=== PATIENT | female | born 1960 | race American Indian/Alaskan Native ===

== ENCOUNTER 2017-05-15 12:46 | Emergency (ER) | payer OTHER ==
[2017-05-15 12:51] VITALS: BMI 13.7
[2017-05-15] MEDS ORDERED: SODIUM CHLORIDE 500 ML IV STA (13:53)
[2017-05-15] MEDS ORDERED: ALBUTEROL SO4 2.5/IPRATROPIUM 0.5 INH SOL 3 ML VIAL.NEB. NEB ONE ×2 (14:00→14:05)
--- NOTE | 2017-05-15 14:15 | PDOC ---
History of Present Illness - General Chief Complaint: Shortness of Breath Stated Complaint: SOB Time Seen by Provider: 05/15/17 13:17 History Source: Patient Exam Limitations: No Limitations - History of Present Illness Initial Comments: 05/15/17 14:02 Patient is a 56 year old woman here today complaining of shortness of breath for the past several weeks. The patient presented to the ED three days ago with the same complaint. She says that she was given albuterol and sent home after improving. The shortness of breath got worse at home, so she came to the ED. Associated symptoms include chest pain and leg pain. The shortness of breath and chest pain get worse with talking and activity. She describes the chest pain as a band of pressure around her chest. The chest pain has worsened over the past several weeks, with the shortness of breath. Her leg pain is located above the left knee, and has gotten worse in the past several days. Past History - Past Medical History Allergies/Adverse Reactions: Allergies Allergy/AdvReac Type Severity Reaction Status Date / Time Penicillins Allergy Hives Verified 05/15/17 12:47 Home Medications: Ambulatory Orders Alprazolam [Xanax] 2 mg PO DAILY PRN tablet 08/23/13 Trazodone HCl 300 mg PO PRN tablet 08/23/13 Biotin 2,500 mcg PO DAILY 09/04/15 Cholecalciferol (Vitamin D3) [Vitamin D3] 2,000 unit PO DAILY 09/04/15 Fentanyl 0 each TD ASDIR 05/12/17 Lubiprostone [Amitiza] 24 mcg PO DAILY 05/12/17 Prednisone [Deltasone] 20 mg PO BID #14 tablet MDD 2 05/12/17 Albuterol Sulfate Inhaler - [Ventolin HFA Inhaler -] 1 puff IH Q2H PRN #1 inhaler 05/15/17 Anemia: No Asthma: No 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) Cardiac Disorders: No CVA: No COPD: No CHF: No Dementia: No Diabetes: No GI Disorders: Yes (enlarged colon, constipation; gastroesophageal refllux disease) Disorders: No HTN: No Hypercholesterolemia: No Liver Disease: No Seizures: No Thyroid Disease: No - Surgical History Other Surgical History: 05/15/17 14:17 Lymph node dissection, neck Uterine tear repair - Family Disease History Family Disease History: Diabetes: Mother, CA: Father (Prostate) - Psycho/Social/Smoking Cessation Hx Anxiety: No Suicidal Ideation: No Smoking History: Current every day smoker Have you smoked in the past 12 months: Yes Number of Cigarettes Smoked Daily: 10 Information on smoking cessation initiated: Yes 'Breaking Loose' booklet given: 05/15/17 Hx Alcohol Use: No Drug/Substance Use Hx: No Substance Use Type: Alcohol Hx Substance Use Treatment: No Cardiac Specific PMH - Complaint Specific PMHX Pacemaker: No Review of Systems - Review of Systems Is the patient limited Bulgarian proficient: Yes Constitutional: Yes: Loss of Appetite, Unintentional Wgt. Loss HEENTM: Yes: Throat Pain Respiratory: Yes: Cough, Shortness of Breath, SOB with Exertion Cardiac (ROS): Yes: Chest Pain, Chest Tightness. No: Palpitations, Syncope ABD/GI: Yes: Constipated : No: Burning, Dysuria Musculoskeletal: Yes: Joint Pain (left knee pain) Neurological: Yes: Headache Psychiatric: Yes: Anxiety Endocrine: Yes: Unexplained Weight Loss *Physical Exam - Vital Signs Last Vital Signs Temp Pulse Resp BP Pulse Ox 97.5 F L 78 24 120/73 99 05/15/17 21:54 05/15/17 21:54 05/15/17 21:54 05/15/17 21:54 05/15/17 21:54 - Physical Exam General Appearance: Yes: Moderate Distress, Cachetic HEENT: positive: EOMI, PADMA, Muffled/Hoarse voice, Nasal Congestion, Rhinorrhea , Hearing Grossly Normal. negative: Pharyngeal Erythema, Tonsillar Exudate Neck: positive: Tender (tender along right side of neck) Respiratory/Chest: positive: Rapid RR, Wheezing. negative: Stridor Cardiovascular: positive: Regular Rhythm, Regular Rate (not tachy during physician assessment) Vascular Pulses: Dorsalis-Pedis (R): 2+, Doralis-Pedis (L): 2+ Gastrointestinal/Abdominal: positive: Normal Bowel Sounds, Tender (non- peritoneal, right sided) Extremity: positive: Other (Tender to palpation above left knee) Neurologic: positive: print line feeder II-XII NML intact, Alert, Normal Response ED Treatment Course - LABORATORY CBC & Chemistry Diagram: 05/15/17 14:30 05/15/17 14:30 - ADDITIONAL ORDERS Additional order review: Laboratory Results 05/15/17 05/15/17 14:30 14:30 Sodium 141 Potassium 4.0 Chloride 100 Carbon Dioxide 31 Anion Gap 10 BUN 23 H D Creatinine 1.0 Creat Clearance w eGFR 57.56 Random Glucose 119 H D Calcium 8.8 Total Bilirubin 0.2 AST 11 L ALT 11 L Alkaline Phosphatase 110 Troponin I < 0.02 Total Protein 5.9 L Albumin 2.9 L Serum , Qual Negative 05/15/17 14:30 RBC 4.23 MCV 84.3 MCHC 32.7 RDW 13.1 MPV 6.9 L Neutrophils % 88.6 H Lymphocytes % 8.2 D Monocytes % 2.6 L Eosinophils % 0.1 Basophils % 0.5 - RADIOLOGY Radiology Studies Ordered: Category Date Time Status CHEST CTA [CT] Stat CT Scan 05/15/17 13:59 Completed CHEST PA & LAT [RAD] Stat Radiology 05/15/17 13:53 Ordered - Medications Given in the ED: ED Medications Discontinued Medications Generic Name Dose Route Start Last Admin Trade Name Freq PRN Reason Stop Dose Admin Albuterol/Ipratropium 1 amp 05/15/17 14:00 05/15/17 14:36 Duoneb - NEB 05/15/17 14:01 1 amp ONCE ONE Administration Alprazolam 0.5 mg 05/15/17 14:56 05/15/17 15:04 Xanax - PO 05/15/17 14:57 0.5 mg ONCE ONE Administration Sodium Chloride 500 mls @ 500 mls/hr 05/15/17 13:53 05/15/17 14:36 Normal Saline - IV 05/15/17 14:52 500 mls/hr ASDIR STA Administration Medical Decision Making - Medical Decision Making 05/15/17 14:25 Patient is a 56 year old female with history of laryngeal cancer complaining of shortness of breath, leg pain and chest pain, most concerning for pulmonary embolism, acute coronary syndrome, URI, COPD/Asthma and pneumonia. I ordered a CBC, CMP, CXR, Troponin, ECG, CTA-PE. She is being treated with duonebs and 500ml of fluids. 05/15/17 15:17 ECG shows normal sinus rhythm with a rate of 92. No ST elevations seen. AK, QRS and QT intervals normal. No T-wave inversions seen. 05/15/17 21:32 Patient tolerating PO, CTA negative 05/15/17 21:[address] Monet, patient has agreed to go home with albuterol and home xanax. Given discharge instructions and return precautions. *DC/Admit/Observation/Transfer Diagnosis at time of Disposition: Shortness of breath - Discharge Dispostion Condition at time of disposition: Improved Admit: No - Prescriptions Prescriptions: Albuterol Sulfate Inhaler - [Ventolin HFA Inhaler -] 1 puff IH Q2H PRN #1 inhaler PRN Reason: Short Of Breath/Wheezing - Referrals Referrals: Joe Han MD [Staff Physician] - - Patient Instructions Printed Discharge Instructions: DI for Shortness of Breath Additional Instructions: When feeling anxious, take several deep breaths and count to 10. Use your albuterol or xanax as needed. If the shortness of breath continues despite attempts to improve it or worsens, come back to the emergency department. Your CT of your chest found several pulmonary nodules that you should follow as an outpatient. A referral to Dr Han has been included in your discharge instructions. Print Language: CENTRAL AFRICAN - Post Discharge Activity Work/School Note: Back to Work - Attestations Physician Attestion: 05/15/17 15:38 I, Dr. Bruce Anderson, attest that this document has been prepared under my direction and personally reviewed by me in its entirety. I further attest, that it accurately reflects all work, treatment, procedures and medical decision -making performed by me.
--- NOTE | 2017-05-15 14:18 | PDOC ---
Attending Attestation - Resident Resident Name: Bruce Anderson - ED Attending Attestation I have performed the following: I have examined & evaluated the patient, The case was reviewed & discussed with the resident, I agree w/resident's findings & plan, Exceptions are as noted - HPI HPI: 05/15/17 14:15 56 yo F h/o laryngeal cancer s/p chemo and xrt presenting to the ER with a complaint of shortness of breath Pt additionally complains of a band like chest pain (+) exertional dyspnea No fevers or chills - Physicial Exam PE: 05/15/17 14:16 RRR Lung exam limited no wheezing noted Mild abd tenderness - Medical Decision Making 05/15/17 14:18 Will do labs Will do CTA (r/o PE) Will check EKG Will re assess 05/15/17 16:29 Laboratory Tests 05/15/17 05/15/17 14:30 14:30 Sodium 141 Potassium 4.0 Chloride 100 Carbon Dioxide 31 BUN 23 H D Creatinine 1.0 Random Glucose 119 H D Alkaline Phosphatase 110 Troponin I < 0.02 Serum , Qual Negative Pt labs nml CTA pending Pt states she feels a bit better She is requesting to be admitted Pt signed out to Dr Monet Pending CTA Heart Score/ECG Review #1 ECG reviewed & interpreted by me at: 16:29 05/15/17 16:29 Sinus rhythm, rate 92 bpm [place] nml no ST elevations or depressions T waves nml 05/15/17 18:31
[2017-05-15 14:38] LABS: BASOPHIL 0.5 % (0-2.0); EOSINOPHIL 0.1 % (0-4.5); MCH 27.6 pg (25.7-33.7); MCHC 32.7 g/dl (32.0-36.0); MEAN CELL VOLUME 84.3 fl (80-96); MEAN PLT VOLUME 6.9 fl (7.5-11.1); NEUTROPHILS 88.6 % (42.8-82.8); PLATELET COUNT 339 K/MM3 (134-434); RDW 13.1 % (11.6-15.6); WHITE BLOOD COUNT 11.6 K/mm3 (4.0-10.0)
[2017-05-15] MEDS ORDERED: ALPRAZolam 0.25 MG TABLET PO ONE (14:56)
[2017-05-15] MEDS ORDERED: ALPRAZolam 0.25 MG TABLET ONE (15:01)
[2017-05-15 15:05] LABS: ALBUMIN 2.9 g/dl (3.4-5.0); ALK PHOS 110 U/L (45-117); ANION GAP 10 (8-16); BILIRUBIN,TOTAL 0.2 mg/dL (0.2-1.0); CALCIUM 8.8 mg/dL (8.5-10.1); CO2 31 mmol/L (21-32); GLUCOSE,RANDOM 119 mg/dL (74-106); SGOT/AST 11 U/L (15-37); SGPT/ALT 11 U/L (12-78); TOT PROT 5.9 g/dl (6.4-8.2)
[2017-05-15 15:07] LABS: TROPONIN I < 0.02 ng/ml (0.00-0.05)
[2017-05-15 21:55] VITALS: BP 120/73; PULSE 78; TEMP 97.5
--- NOTE | 2017-05-15 22:13 | PDOC ---
*Physical Exam - Vital Signs Last Vital Signs Temp Pulse Resp BP Pulse Ox 97.5 F L 78 24 120/73 99 05/15/17 21:54 05/15/17 21:54 05/15/17 21:54 05/15/17 21:54 05/15/17 21:54 ED Treatment Course - LABORATORY CBC & Chemistry Diagram: 05/15/17 14:30 05/15/17 14:30 - ADDITIONAL ORDERS Additional order review: Laboratory Results 05/15/17 05/15/17 14:30 14:30 Sodium 141 Potassium 4.0 Chloride 100 Carbon Dioxide 31 Anion Gap 10 BUN 23 H D Creatinine 1.0 Creat Clearance w eGFR 57.56 Random Glucose 119 H D Calcium 8.8 Total Bilirubin 0.2 AST 11 L ALT 11 L Alkaline Phosphatase 110 Troponin I < 0.02 Total Protein 5.9 L Albumin 2.9 L Serum , Qual Negative 05/15/17 14:30 RBC 4.23 MCV 84.3 MCHC 32.7 RDW 13.1 MPV 6.9 L Neutrophils % 88.6 H Lymphocytes % 8.2 D Monocytes % 2.6 L Eosinophils % 0.1 Basophils % 0.5 - Medications Given in the ED: ED Medications Discontinued Medications Generic Name Dose Route Start Last Admin Trade Name Freq PRN Reason Stop Dose Admin Albuterol/Ipratropium 1 amp 05/15/17 14:00 05/15/17 14:36 Duoneb - NEB 05/15/17 14:01 1 amp ONCE ONE Administration Alprazolam 0.5 mg 05/15/17 14:56 05/15/17 15:04 Xanax - PO 05/15/17 14:57 0.5 mg ONCE ONE Administration Sodium Chloride 500 mls @ 500 mls/hr 05/15/17 13:53 05/15/17 14:36 Normal Saline - IV 05/15/17 14:52 500 mls/hr ASDIR STA Administration Medical Decision Making - Medical Decision Making 05/15/17 22:10 Pt signed out to me from Dr. Santiago. The pt presented with sob, she had a workup here including labs, US, cta that were essentially neg for acute pathology. I suspect the pts sypmtoms are secondary to the limited movement of the pts vocal cords as the pt states when she is anious/breathing quickly she feels like she is suffocating. I will have the pt slow down her breathing when she is breathing quickly and she should feel better. I also enocuraged her to use her AC and take her xanax when needed. The pt has a follow up with ENT on monday for a biopsy. return precautions were discussed I discussed the physical exam findings, ancillary test results and final diagnoses with the patient. I answered all of the patient's questions. The patient was satisfied with the care received and felt comfortable with the discharge plan and treatment plan. The patient will call their primary care physician within 24 hours to arrange follow-up and will return to the Emergency Department with any new, persistent or worsening symptoms. *DC/Admit/Observation/Transfer Diagnosis at time of Disposition: Shortness of breath - Discharge Dispostion Condition at time of disposition: Improved - Prescriptions Prescriptions: Albuterol Sulfate Inhaler - [Ventolin HFA Inhaler -] 1 puff IH Q2H PRN #1 inhaler PRN Reason: Short Of Breath/Wheezing - Referrals Referrals: Joe Han MD [Staff Physician] - - Patient Instructions Printed Discharge Instructions: DI for Shortness of Breath Additional Instructions: When feeling anxious, take several deep breaths and count to 10. Use your albuterol or xanax as needed. If the shortness of breath continues despite attempts to improve it or worsens, come back to the emergency department. Your CT of your chest found several pulmonary nodules that you should follow as an outpatient. A referral to Dr Han has been included in your discharge instructions. Print Language: GEORGIAN - Post Discharge Activity Work/School Note: Back to Work
--- NOTE | 2017-05-16 14:43 | EKG ---
Test Reason : Blood Pressure : / mmHG Vent. 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
== END 2017-05-15 22:34 | disposition home or self-care (01) ==
LOC: JER 12:46
PROC: 3E0F7GC Introduction of Other Therapeutic Substance into Respiratory Tract, Via Natural or Artificial Opening (ICD-10-PCS; principal; 2017-05-15)
PROC: 3E0337Z Introduction of Electrolytic and Water Balance Substance into Peripheral Vein, Percutaneous Approach (ICD-10-PCS; 2017-05-15)
DX: R06.02 Shortness of breath (principal); Z85.21 Personal history of malignant neoplasm of larynx
CPT/HCPCS: 36415; 71275-TC; 80053; 84484; 84703; 85025; 93005; 93010; 99283-25

== ENCOUNTER 2017-08-20 13:45 | Emergency (ER) | payer OTHER ==
[2017-08-20 13:55] VITALS: BMI 14.6
--- NOTE | 2017-08-20 14:05 | PDOC ---
History of Present Illness <Lucho Santo - Last Filed: 08/20/17 14:04> - History of Present Illness Initial Comments: 08/20/17 14:38 The patient is a 56 year old female, accompanied by , with a past medical history of anxiety, enlarged colon, chronic constipation, stage 4 throat cancer (s/p radiation and chemotherapy), and current cigarette smoking ( 10 cigarettes daily), who presents to the emergency department with increased swelling to her left clavicle s/p surgical reconstruction of her throat involving tissue from thigh and left breast about 3 weeks ago. She also reports her feeding tube site looks infected for about 6 days. The patient reports her surgery 3 weeks ago was a second time surgery performed at [facility] with Dr. Smallwood, ENT surgeon. She states she was placed in a hyperbaric chamber until about a week ago, to which she attributes an onset of right ear pain after being removed from the hyperbaric chamber. The patient reports her feeding tube is functional, however, states the surrounding site looks irritated. She states she bolus feeds herself about 3 times a day. She denies chest pain, shortness of breath, headache and dizziness. She denies fever, chills, nausea, vomit, diarrhea and constipation. She denies dysuria, frequency, urgency and hematuria. Allergies: Penicillins PCP - Dr. Akers ([phone]) ENT - Dr. 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) Cardiac Disorders: No CVA: No COPD: No CHF: No Dementia: No Diabetes: No GI Disorders: Yes (enlarged colon, constipation; gastroesophageal refllux disease) Disorders: No HTN: No Hypercholesterolemia: No Liver Disease: No Seizures: No Thyroid Disease: No - Family Disease History Family Disease History: Diabetes: Mother, CA: Father (Prostate) - Suicide/Smoking/Psychosocial Hx Smoking History: Unknown if ever smoked Have you smoked in the past 12 months: Yes Number of Cigarettes Smoked Daily: 10 'Breaking Loose' booklet given: 05/15/17 Hx Alcohol Use: No Drug/Substance Use Hx: No Substance Use Type: None Hx Substance Use Treatment: No <Lucho Santo - Last Filed: 08/20/17 14:04> <Milagro Tucker - Last Filed: 08/20/17 19:52> <Alexa Steele - Last Filed: 08/20/17 20:25> - Past Medical History Allergies/Adverse Reactions: Allergies Allergy/AdvReac Type Severity Reaction Status Date / Time Penicillins Allergy Hives Verified 08/20/17 16:06 Home Medications: Ambulatory Orders Alprazolam [Xanax] 2 mg PO DAILY PRN 08/20/17 Carisoprodol [Soma] 350 mg PO DAILY 08/20/17 Diazepam [Valium] 5 mg PO TID 08/20/17 Gabapentin [Neurontin] 200 mg PO DAILY 08/20/17 Hydromorphone [Dilaudid -] 2 mg PO DAILY PRN 08/20/17 Levothyroxine Sodium [Levo-T] 150 mcg PO DAILY 08/20/17 Lorazepam [Ativan] 2 mg PO BID 08/20/17 Lubiprostone [Amitiza] 24 mcg PO DAILY 08/20/17 Oxycodone HCl/Acetaminophen [Percocet 5-325 mg Tablet] 1 - 2 tab PO Q4H PRN 06/29 Prednisone [Deltasone] 20 mg PO BID 08/20/17 Trazodone HCl 300 mg PO DAILY 08/20/17 Review of Systems - Review of Systems Able to Perform ROS?: Yes Comments:: 08/20/17 14:38 GENERAL/CONSTITUTIONAL: No fever or chills. No weakness. HEAD, EYES, EARS, NOSE AND THROAT: No change in vision. No ear pain or discharge. No sore throat. CARDIOVASCULAR: No chest pain or shortness of breath. RESPIRATORY: No cough, wheezing, or hemoptysis. GASTROINTESTINAL: No nausea, vomiting, diarrhea or constipation. GENITOURINARY: No dysuria, frequency, or change in urination. MUSCULOSKELETAL: No joint or muscle swelling or pain. No neck or back pain. SKIN: (+) swelling to left clavicular region. "skin irritation" to feeding tube site. NEUROLOGIC: No headache, vertigo, loss of consciousness, or change in strength/ sensation. ENDOCRINE: No increased thirst. No abnormal weight change. HEMATOLOGIC/LYMPHATIC: No anemia, easy bleeding, or history of blood clots. ALLERGIC/IMMUNOLOGIC: No hives or skin allergy. <Milagro Tucker - Last Filed: 08/20/17 19:52> *Physical Exam - Vital Signs Last Vital Signs Temp Pulse Resp BP Pulse Ox 98 F 102 H 19 109/66 99 08/20/17 13:52 08/20/17 13:52 08/20/17 13:52 08/20/17 13:52 08/20/17 13:52 <Lucho Santo - Last Filed: 08/20/17 14:04> - Vital Signs Last Vital Signs Temp Pulse Resp BP Pulse Ox 98 F 102 H 19 109/66 99 08/20/17 13:52 08/20/17 13:52 08/20/17 13:52 08/20/17 13:52 08/20/17 13:52 - Physical Exam Comments: 08/20/17 14:39 GENERAL: Awake, alert, and fully oriented, frail appearing, in no acute distress HEAD: No signs of trauma EYES: PERRLA, EOMI, sclera anicteric, conjunctiva clear ENT: (+) Stoma does not appear infected, tubes in bilateral ears with wax and debris in right eat. hearing grossly normal, nares patent, oropharynx clear without exudates. Moist mucosa NECK: (+) swelling to left clavicle. Normal ROM, supple, no lymphadenopathy, JVD , or palpable masses LUNGS: Breath sounds equal, clear to auscultation bilaterally. No wheezes, and no crackles HEART: Regular rate and rhythm, normal S1 and S2, no murmurs, rubs or gallops ABDOMEN: (+) feeding tube intact to LLQ without surrounding erythema or increased warmth. Soft, nontender, normoactive bowel sounds. No guarding, no rebound. No masses EXTREMITIES: Normal range of motion, no edema. No clubbing or cyanosis. No cords, erythema, or tenderness NEUROLOGICAL: Cranial nerves II through XII grossly intact. Normal speech, normal gait SKIN: Warm, Dry, normal turgor, no rashes or lesions noted. <Milagro Tucker - Last Filed: 08/20/17 19:52> - Vital Signs Last Vital Signs Temp Pulse Resp BP Pulse Ox 98.1 F 85 18 119/81 100 08/20/17 16:53 08/20/17 16:53 08/20/17 16:53 08/20/17 16:53 08/20/17 16:53 <Alexa Steele - Last Filed: 08/20/17 20:25> ED Treatment Course - LABORATORY CBC & Chemistry Diagram: 08/20/17 15:00 08/20/17 15:00 - RADIOLOGY Radiograph Interpretation: EXAM#: TYPE/EXAM: RESULT: [id number] RAD/ABDOMEN-KUB FLAT PLATE Abdomen: Check G-tube study Contrast was injected into a G-tube. This filled stomach and proximal duodenum. There is no sign of obstruction or leak. The limited imaging is available for review. Reported By: Vahid Gloria MD 08/20/17 1540 _ EXAM: CT CHEST WITH CONTRAST. REASON FOR EXAM: Laryngeal cancer COMPARISON: None FINDINGS Centrilobular pulmonary emphysematous changes occupying the upper lung reis. There is no pulmonary nodule, mass, effusion, pneumothorax. Cardiac structure and pulmonary vascularity are within normal. There is no pathologic mediastinal or axillary adenopathy. There is no aortic aneurysm, dissection or pulmonary embolus. There is no pericardial effusion observed. Bony thoracic cage is unremarkable. IMPRESSION: No active chest findings. No pulmonary mass or pathologic adenopathy Pulmonary emphysema Tawana Maynard D.O. 08/20/2017 18:49 EST _ EXAM: CT NECK with IV contrast HISTORY: Laryngeal carcinoma. Multiple surgeries. COMPARISON: None. FINDINGS: There is evidence of prior anterior neck resection with fat transposition. Tracheostomy in place. Trachea is obstructed above the tracheostomy and filled with secretion. Multiple surgical clips in the bilateral neck. No pathologically enlarged lymph node identified. Soft tissue tumor extension or inflammation is not excluded in the upper neck. Jugular veins are normally opacified. No lytic or sclerotic bony lesion seen in the cervical spine. Lung emphysema with lung apical fibrosis. Patricia Banuelos MD 08/20/2017 19:45 EST <Milagro Tucker - Last Filed: 08/20/17 19:52> - LABORATORY CBC & Chemistry Diagram: 08/20/17 15:00 08/20/17 15:00 - ADDITIONAL ORDERS Additional order review: Laboratory Results 08/20/17 08/20/17 08/20/17 15:35 15:00 15:00 PT with INR INR Sodium 139 Potassium 4.4 Chloride 100 Carbon Dioxide 29 Anion Gap 10 BUN 59 H D Creatinine 1.1 H Creat Clearance w eGFR 51.57 Random Glucose 105 Lactic Acid 0.8 Calcium 9.1 Total Bilirubin 0.3 D AST 19 D ALT 19 D Alkaline Phosphatase 147 H D Total Protein 7.0 Albumin 3.2 L Urine Color Yellow Urine Appearance Slcloudy Urine pH 6.0 Ur Specific [place] 1.010 Urine Protein Negative Urine Glucose (UA) Negative Urine Ketones Negative Urine Blood Negative Urine Nitrite Negative Urine Bilirubin Negative Urine Urobilinogen Negative Ur Leukocyte Esterase Negative Acetone, Qual Negative L 08/20/17 15:00 PT with INR 10.70 INR 0.97 Sodium Potassium Chloride Carbon Dioxide Anion Gap BUN Creatinine Creat Clearance w eGFR Random Glucose Lactic Acid Calcium Total Bilirubin AST ALT Alkaline Phosphatase Total Protein Albumin Urine Color Urine Appearance Urine pH Ur Specific [place] Urine Protein Urine Glucose (UA) Urine Ketones Urine Blood Urine Nitrite Urine Bilirubin Urine Urobilinogen Ur Leukocyte Esterase Acetone, Qual 08/20/17 15:00 RBC 3.33 L D MCV 88.8 MCHC 32.9 RDW 20.2 H D MPV 7.7 D Neutrophils % 73.3 Lymphocytes % 14.2 D Monocytes % 9.0 D Eosinophils % 2.8 D Basophils % 0.7 - Medications Given in the ED: ED Medications Discontinued Medications Generic Name Dose Route Start Last Admin Trade Name Maykel PRN Reason Stop Dose Admin Sodium Chloride 1,000 mls @ 1,000 mls/hr 08/20/17 14:37 08/20/17 15:41 Normal Saline - IV 08/20/17 15:36 1,000 mls/hr ASDIR STA Administration <Alexa Steele - Last Filed: 08/20/17 20:25> Medical Decision Making - Medical Decision Making 08/20/17 19:38 Patient Name: KENNETH ANAND THIS IS A PRELIMINARY REPORT FROM [facility] DATE OF SERVICE: 2017-08-20 17:24:38 IMAGES: [id number] EXAM: CT CHEST WITH CONTRAST. REASON FOR EXAM: Laryngeal cancer COMPARISON: None FINDINGS Centrilobular pulmonary emphysematous changes occupying the upper lung reis. There is no pulmonary nodule, mass, effusion, pneumothorax. Cardiac structure and pulmonary vascularity are within normal. There is no pathologic mediastinal or axillary adenopathy. There is no aortic aneurysm, dissection or pulmonary embolus. There is no pericardial effusion observed. Bony thoracic cage is unremarkable. IMPRESSION No active chest findings. No pulmonary mass or pathologic adenopathy Pulmonary emphysema THIS DOCUMENT HAS BEEN ELECTRONICALLY SIGNED 08/20/17 20:03 Patient Name: KENNETH ANAND THIS IS A PRELIMINARY REPORT FROM [facility] DATE OF SERVICE: 2017-08-20 17:31:27 IMAGES: [id number] EXAM: CT NECK with IV contrast HISTORY: Laryngeal carcinoma. Multiple surgeries. COMPARISON: None. FINDINGS: There is evidence of prior anterior neck resection with fat transposition. Tracheostomy in place. Trachea is obstructed above the tracheostomy and filled with secretion. Multiple surgical clips in the bilateral neck. No pathologically enlarged lymph node identified. Soft tissue tumor extension or inflammation is not excluded in the upper neck. Jugular veins are normally opacified. No lytic or sclerotic bony lesion seen in the cervical spine. Lung emphysema with lung apical fibrosis. THIS DOCUMENT HAS BEEN ELECTRONICALLY SIGNED 08/20/17 20:10 I spoke to pt's ENT service and ronald will get in touch with her ENT Rosamny to figure out follow up treatment after today. <Alexa Steele - Last Filed: 08/20/17 20:25> *DC/Admit/Observation/Transfer - Attestations Physician Attestion: 08/20/17 14:05 I, Dr. Lucho Santo, attest that this document has been prepared under my direction and personally reviewed by me in its entirety. I further attest, that it accurately reflects all work, treatment, procedures and medical decision -making performed by me. <Lucho Santo - Last Filed: 08/20/17 14:04> - Attestations Scribe Attestion: 08/20/17 14:43 Documentation prepared by Milagro Tucker, acting as medical reception for Lucho Santo DO <Milagro Tucker - Last Filed: 08/20/17 19:52> <Alexa Steele - Last Filed: 08/20/17 20:25> Diagnosis at time of Disposition: Dehydration, Neck swelling, Skin irritation - Discharge Dispostion Disposition: HOME Condition at time of disposition: Stable - Referrals Referrals: Bruce Akers MD [Primary Care Provider] - - Patient Instructions Printed Discharge Instructions: DI for Postoperative Pain
[2017-08-20] MEDS ORDERED: SODIUM CHLORIDE 1,000 ML IV STA ×2 (14:37→18:44)
[2017-08-20 15:12] LABS: BASOPHIL 0.7 % (0-2.0); EOSINOPHIL 2.8 % (0-4.5); MCH 29.2 pg (25.7-33.7); MCHC 32.9 g/dl (32.0-36.0); MEAN CELL VOLUME 88.8 fl (80-96); MEAN PLT VOLUME 7.7 fl (7.5-11.1); NEUTROPHILS 73.3 % (42.8-82.8); PLATELET COUNT 354 K/MM3 (134-434); RDW 20.2 % (11.6-15.6); WHITE BLOOD COUNT 8.1 K/mm3 (4.0-10.0)
[2017-08-20 15:27] LABS: INR 0.97 (0.82-1.09); PROTHROMBIN TIME (PATIENT) 10.7 SEC (9.98-11.88)
[2017-08-20 15:32] LABS: ACETONE SERUM NEGATIVE (NEGATIVE)
[2017-08-20 15:38] LABS: ALBUMIN 3.2 g/dl (3.4-5.0); ANION GAP 10 (8-16); BILIRUBIN,TOTAL 0.3 mg/dL (0.2-1.0); CALCIUM 9.1 mg/dL (8.5-10.1); CO2 29 mmol/L (21-32); CREATININE 1.1 mg/dL (0.55-1.02); GLUCOSE,RANDOM 105 mg/dL (74-106); SGOT/AST 19 U/L (15-37); SGPT/ALT 19 U/L (12-78)
[2017-08-20 15:39] LABS: ALK PHOS 147 U/L (45-117)
[2017-08-20 16:01] LABS: URINE APPEARANCE SLCLOUDY; URINE BILIRUBIN NEGATIVE (NEGATIVE); URINE BLOOD NEGATIVE (NEGATIVE); URINE COLOR YELLOW; URINE GLUCOSE (UA) NEGATIVE (NEGATIVE); URINE KETONE NEGATIVE (NEGATIVE); URINE NITRITE NEGATIVE (NEGATIVE); URINE PROTEIN NEGATIVE (NEGATIVE); URINE UROBILINOGEN NEGATIVE mg/dL (0.2-1.0)
[2017-08-20 19:00] LABS: URINE LEUK ESTERASE Negative (NEGATIVE)
[2017-08-20 20:32] VITALS: BP 127/86; PULSE 89; TEMP 98.5
== END 2017-08-20 20:32 | disposition home or self-care (01) ==
LOC: JER 13:45
PROC: 3E0337Z Introduction of Electrolytic and Water Balance Substance into Peripheral Vein, Percutaneous Approach (ICD-10-PCS; principal; 2017-08-20)
DX: E86.0 Dehydration (principal); R22.1 Localized swelling, mass and lump, neck; L98.9 Disorder of the skin and subcutaneous tissue, unspecified; F41.9 Anxiety disorder, unspecified; K59.00 Constipation, unspecified; C14.0 Malignant neoplasm of pharynx, unspecified; Z92.21 Personal history of antineoplastic chemotherapy; Z92.3 Personal history of irradiation; F17.210 Nicotine dependence, cigarettes, uncomplicated; Z88.0 Allergy status to penicillin; K21.9 Gastro-esophageal reflux disease without esophagitis; K59.39 Other megacolon; Z93.3 Colostomy status
CPT/HCPCS: 36415; 70491-TC; 71260-TC; 74000-TC; 80053; 81003; 82009; 83605; 85025; 85610; 87040; 87086; 99283-25

== ENCOUNTER 2018-01-25 09:49 | Observation (INO) | payer OTHER ==
--- NOTE | 2018-01-25 11:01 | PDOC ---
History of Present Illness - General Chief Complaint: Psychiatric Stated Complaint: ANXIETY, (POSSIBLE OVERDOSE) Time Seen by Provider: 01/25/18 10:06 History Source: Patient Exam Limitations: No Limitations - History of Present Illness Initial Comments: 01/25/18 17:34 The patient is a 57 year old female with history of laryngeal CA, anxiety/ depression, who presents to the ED today after overdosing on several of her medications. She states she has been dealing with feelings of anxiety and restlessness for several months. She states she has been taking above her recommended dosage of her Xanax, Lorazepam, and Oxycodone for some time because "nothing is helping". Today, she took approximately 4 Lorazepam, >10 Xanax, and >8 Oxycodone this morning prior to ED arrival. On evaluation, she does report persistant feelings of anxiety. She denies any other acute physical complaints. No headache, abdominal pain, nausea, or vomiting today. pt denies any cp, sob, palpitations, abd pain ,n/v. Pt denie sany SI/HI - states she took the meds strictly as she felt anxious and wanted the meds to make her less anxious no history of SI or attempts. 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) Cardiac Disorders: No CVA: No COPD: No CHF: No Dementia: No Diabetes: No GI Disorders: Yes (enlarged colon, constipation; gastroesophageal refllux disease) Disorders: No HTN: No Hypercholesterolemia: No Liver Disease: No Seizures: No Thyroid Disease: No - Family Disease History Family Disease History: Diabetes: Mother, CA: Father (Prostate) - Suicide/Smoking/Psychosocial Hx Smoking History: Unknown if ever smoked Have you smoked in the past 12 months: Yes Number of Cigarettes Smoked Daily: 3 Information on smoking cessation initiated: Yes 'Breaking Loose' booklet given: 01/25/18 Hx Alcohol Use: No Drug/Substance Use Hx: No Substance Use Type: None Hx Substance Use Treatment: No Review of Systems - Review of Systems Able to Perform ROS?: Yes Comments:: 01/25/18 17:34 Constitutional - no reported Fever, Chills, HEENT: no reported vision changes, sore throat Respiratory: no reported cough, sob, hemoptysis Cardiac: no reported chest pain, palpitations, light headedness, leg swelling Abd/GI: no reported abd pain, nausea, vomiting, blood per rectum, melena, diarrhea : no reported dysuria, frequency, discharge Musculskelatal - no reported back pain, joint swelling skin - no reported bruising, erythema, rash neurological: no reported headache, numbness, focal weakness, tingling, ataxia, hematologic: no reported anemia, easy bruising, easy bleeding psych:+anxiety *Physical Exam - Vital Signs Last Vital Signs Temp Pulse Resp BP Pulse Ox 97.9 F 61 18 131/71 100 01/25/18 09:52 01/25/18 09:52 01/25/18 09:52 01/25/18 09:52 01/25/18 09:52 - Physical Exam Comments: 01/25/18 17:35 GENERAL: The patient is awake, alert, and fully oriented, Thin, anxious appearing, tearful. tremulous, cacetchic appearing HEAD: Normocephalic, atraumatic. EYES: extraocular movements intact, sclera anicteric, conjunctiva clear. ENT: Unable to vocalize secondary to laryngeal surgeries, dry mucous membranes. trach in place NECK: Normal range of motion, supple LUNGS: Breath sounds equal, clear to auscultation bilaterally. No wheezes, no rhonchi, no rales. HEART: Regular rate and rhythm, without murmur, rub or gallop. ABDOMEN: Soft, nontender, normoactive bowel sounds. No guarding, no rebound.No CVA tenderness EXTREMITIES: Normal range of motion, no edema. No clubbing or cyanosis. No cords, erythema, or tenderness. NEUROLOGICAL: No facial assymetry, Normal speech, PSYCH: Normal mood, normal affect. SKIN: Warm, Dry, normal turgor, Well healing surgical scars noted on chest and left lower extermity ED Treatment Course - LABORATORY CBC & Chemistry Diagram: 01/25/18 11:57 01/25/18 11:57 Medical Decision Making - Medical Decision Making 01/25/18 11:00 57y F hxo f pmhx lanryngeal ca, GERD, deperssion, anxiety, presents for being uanble to sleep and being very anxious due to her impending surgery. She has been taking her medications in exceess (xanax 0.25mg, ativan 1mg, oxycodone 5mg , soma) without help. on exam pt is tremulous, appears anxious and tearful pt denies any SI/HI has not taken any other medications will ck labs, ekg, will r/o conigestants will dw tox center A portion of this note was documented by scribe services under my direction. I have reviewed the details of the note, within reason, and agree with the documentation with the following case summary and management plan written by me 01/25/18 12:55 pill count: Loraxepam 1mg, disp 60 tabs, filled 01/04/18 took 48 tabs over 20 days Alprozolam .25mg, disp 180 tabs, filled 01/11/18, took 160 tabs in 14 days Oxycodone 5mg --> took 96 tabs over 21 days soma 350mg, took 56.5 tabs in 14 days (dosed BID) 01/25/18 12:59 Discussed with Veronique at [facility] Poison control notified 01/25/18 14:54 case jaswant walters from [facility] poison - recommend observation, librium/symptomatic treatment 01/25/18 15:07 case jaswant plascencia [facility] Case discussed in detail with admitting physician including history, physical exam and ancillary studies. Admitting physician has assumed care for the patient, will follow all pending diagnostics and will complete the evaluation and treatment. *DC/Admit/Observation/Transfer Diagnosis at time of Disposition: Benzodiazepine abuse Benzodiazepine withdrawal Qualifiers: Complication of substance-induced condition: uncomplicated Qualified Code(s): F13.230 - Sedative, hypnotic or anxiolytic dependence with withdrawal, uncomplicated - Discharge Dispostion Condition at time of disposition: Guarded Admit: Yes - Referrals Referrals: Bruce Akers MD [Primary Care Provider] - - Patient Instructions - Post Discharge Activity
[2018-01-25 12:04] LABS: BASO % 0.5 % (0-2.0); EOS % 3.3 % (0-4.5); HEMATOCRIT 35.9 % (32.4-45.2); HEMOGLOBIN 12.1 GM/dL (10.7-15.3); LYMPH % 19.3 % (8-40); MCH 30.5 pg (25.7-33.7); MCHC 33.8 g/dl (32.0-36.0); MEAN CELL VOLUME 90.3 fl (80-96); MONO % 8.1 % (3.8-10.2); NEUT % 68.8 % (42.8-82.8); PLATELET COUNT 246 K/MM3 (134-434); RBC 3.98 M/mm3 (3.60-5.2); RDW 16.5 % (11.6-15.6); WHITE BLOOD COUNT 7.5 K/mm3 (4.0-10.0)
--- NOTE | 2018-01-25 12:33 | EKG ---
Test Reason : Blood Pressure : / mmHG Vent. 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
[2018-01-25 12:36] LABS: ALBUMIN 4.1 g/dl (3.4-5.0); ANION GAP 7 (8-16); BILIRUBIN,TOTAL 0.3 mg/dL (0.2-1.0); BLOOD UREA NITROGEN 49 mg/dL (7-18); CALCIUM 8.7 mg/dL (8.5-10.1); CHLORIDE 97 mmol/L (98-107); CO2 33 mmol/L (21-32); CREATININE 1.3 mg/dL (0.55-1.02); GLUCOSE,RANDOM 71 mg/dL (74-106); POTASSIUM 4.3 mmol/L (3.5-5.1); SGOT/AST 29 U/L (15-37); SGPT/ALT 37 U/L (12-78); SODIUM 137 mmol/L (136-145); TOT PROT 7.8 g/dl (6.4-8.2)
[2018-01-25 12:37] LABS: ACETAMINOPHEN 7.917 ug/mL; ALK PHOS 139 U/L (45-117)
[2018-01-25] MEDS ORDERED: SODIUM CHLORIDE 1,000 ML IV ONE (13:08)
[2018-01-25] MEDS ORDERED: chlordiazePOXIDE HCL 25 MG CAPSULE PO ONE (14:54)
--- NOTE | 2018-01-25 15:08 | CONSULT ---
"Consult Detox [facility] Reason for Current Admission/Consult: withdrawal from prescribed medications Referred by:: dr. Monet - History History of Present Illness: Yancy Rodriguez, 1960 Search Date: 01/26/2018 10:30:06 AM The Drug Utilization Report below displays all of the controlled substance prescriptions, if any, that your patient has filled in the last twelve months. The information displayed on this report is compiled from pharmacy submissions to the Department, and accurately reflects the information as submitted by the pharmacies. This report was requested by: Kelvin Aguirre | Reference #: [id number] Others' Prescriptions Patient Name: Klarissa Rodriguez Date: 1960 Address: [address] [place] [address] Sex: Female Rx Written Rx Dispensed Drug Quantity Days Supply Prescriber Name 01/11/2018 01/12/2018 fentanyl 50 mcg/hr patch 10 30 Oswald, Bruce Ruelas MD 01/11/2018 01/12/2018 alprazolam 0.25 mg tablet 180 30 Oswald, Bruce Ruelas MD 01/11/2018 01/12/2018 carisoprodol 350 mg tablet 60 30 Oswald, Bruce Ruelas MD 01/04/2018 01/05/2018 oxycodone hcl 5 mg tablet 120 30 Oswald, Bruce Ruelas MD 01/04/2018 01/05/2018 lorazepam 1 mg tablet 60 30 Oswald, Bruce Ruelas MD 12/14/2017 12/16/2017 fentanyl 50 mcg/hr patch 10 30 Oswald, Bruce Ruelas MD 12/14/2017 12/16/2017 carisoprodol 350 mg tablet 30 30 OswaldBruce MD 12/14/2017 12/16/2017 alprazolam 0.25 mg tablet 180 30 Oswald, Bruce Ruelas MD 12/08/2017 12/09/2017 lorazepam 1 mg tablet 60 30 Oswald, Bruce Ruelas MD 12/05/2017 12/05/2017 oxycodone hcl 5 mg tablet 120 30 Oswald, Bruce Ruelas MD 12/01/2017 12/02/2017 hydromorphone 2 mg tablet 60 20 Oswald, Bruce Ruelas MD 11/14/2017 11/15/2017 fentanyl 50 mcg/hr patch 10 30 OswaldBruce MD 11/14/2017 11/15/2017 carisoprodol 350 mg tablet 30 30 OswaldBruce MD 11/14/2017 11/15/2017 alprazolam 0.25 mg tablet 180 30 OswaldBruce MD 11/03/2017 11/10/2017 hydromorphone 2 mg tablet 60 20 OswaldBruce MD 10/11/2017 11/09/2017 lorazepam 1 mg tablet 60 30 OswaldBruce MD 11/02/2017 11/03/2017 hydromorphone 2 mg tablet 30 10 OswaldBruce MD 10/30/2017 11/02/2017 fentanyl 25 mcg/hr patch 5 30 OswaldBruce MD 10/16/2017 10/18/2017 fentanyl 12 mcg/hr patch 5 15 OswaldBruce MD 10/16/2017 10/18/2017 alprazolam 0.25 mg tablet 180 30 OswaldBruce MD 10/16/2017 10/18/2017 carisoprodol 350 mg tablet 30 30 OswaldBruce MD 09/11/2017 10/11/2017 lorazepam 1 mg tablet 60 30 OswaldBruce MD 10/02/2017 10/04/2017 hydromorphone 2 mg tablet 90 30 OswaldBruce MD 09/18/2017 09/18/2017 hydromorphone 2 mg tablet 60 30 RoschMichael MD 09/18/2017 09/18/2017 alprazolam 0.25 mg tablet 180 30 RoschMichael MD 09/18/2017 09/18/2017 carisoprodol 350 mg tablet 30 30 RoschMichael MD 08/18/2017 09/11/2017 lorazepam 1 mg tablet 60 30 OswaldBruce MD 08/18/2017 08/18/2017 hydromorphone 2 mg tablet 60 30 OswaldBruce MD 08/18/2017 08/18/2017 alprazolam 0.25 mg tablet 180 30 OswaldBruce MD 08/18/2017 08/18/2017 carisoprodol 350 mg tablet 30 30 OswaldBruce MD 08/04/2017 08/08/2017 lorazepam 1 mg tablet 32 16 Bruce Akers MD 08/04/2017 08/05/2017 hydromorphone 2 mg tablet 32 16 Bruce Akers MD 08/04/2017 08/05/2017 diazepam 5 mg tablet 50 16 Bruce Akers MD 08/04/2017 08/05/2017 carisoprodol 350 mg tablet 48 16 OswaldBruce rice MD 05/19/2017 05/23/2017 alprazolam 0.25 mg tablet 180 30 OswaldBruce escalera MD 05/19/2017 05/23/2017 tramadol-acetaminophen 37.5-325 mg tab 120 30 OswaldBruce escalera MD 04/14/2017 04/18/2017 alprazolam 0.25 mg tablet 180 30 OswaldBruce escalera MD 04/17/2017 04/18/2017 tramadol-acetaminophen 37.5-325 mg tab 120 30 OswaldBruce escalera MD 03/06/2017 03/15/2017 alprazolam 0.25 mg tablet 180 30 OswaldBruce escalera MD 03/06/2017 03/06/2017 tramadol-acetaminophen 37.5-325 mg tab 120 30 Darby Orlando [employer] WORKER 02/17/2017 02/18/2017 tramadol-acetaminophen 37.5-325 mg tab 30 10 Darby Orlando DERRICK WORKER 01/19/2017 01/30/2017 tramadol hcl 50 mg tablet 60 30 OswaldBruce escalera MD 01/19/2017 01/30/2017 alprazolam 0.25 mg tablet 180 30 OswaldBruce escalera MD 57 yo f admitted with dehydration, PMHX ca larynx, s/p laryngectomy and did not bring her device for speaking so history is obtained between reading lips and her writing. she has chronic pain and anxiety and has been overusing her medications. now anxiety ++++ , was given librium 100mg x1 dose in ed yesterday , oxycodone 5mg x1 dose today and wears fentanyl patch. Patient denies alcohol or other illicit drug use, seizures or DTS in past, smokes nicotine vapes? requesting gum - History Source History Provided By: Patient, Medical Record, Caregiver Limitations to Obtaining History: Physical Impairment - Alcohol/Substance Use Hx Alcohol Use: No Hx Substance Use: Yes (overuse of pain and anxiety medi ations, ran out) Hx Substance Use Treatment: No - Current Drug/Alcohol Use Alprazolam (Xanax) Route: Oral Frequency: Daily Amount used: prescribed as per [employer] OPERATOR Date of Last Use: 01/25/18 (given librium 100mg in ED) - Significant Medical Findings: 57 yo f with h/o anxiety do, laryngeal ca s/p laryngectomy, chronic pain syndrome and anxiety increasing admitted with dehydration after overusing and running out of prescribed medications, wearing fantanyl patch. no sedation with 100mg librium or 5mg oxycodone. very anxious A and o x3. CIWA Score - CIWA Score Nausea/Vomitin Muscle Tremors: 4-Moderate,w/Arms Extend Anxiety: 4-Mod. Anxious/Guarded Agitation: 4-Moderately Restless Paroxysmal Sweats: 3 Orientation: 0-Oriented Tacttile Disturbances: 0-None Auditory Disturbances: 0-None Visual Disturbances: 0-None Headache: 0-None Present CIWA-Ar Total Score: 18 Assessment Plan - Diagnosis (1) Sedative, hypnotic or anxiolytic dependence with withdrawal, uncomplicated Status: Acute (2) ARCENIO (acute kidney injury) Status: Acute (3) Benzodiazepine abuse Status: Acute (4) Chronic pain Status: Acute Qualifiers: Chronic pain type: chronic pain syndrome Qualified Code(s): G89.4 - Chronic pain syndrome (5) Dehydration Status: Acute (6) Laryngeal cancer Status: Acute (7) Nausea & vomiting Status: Acute (8) Weight loss Status: Acute - Plan Plan: chart, imaging, labs reviewed. Patient examined and history taken, patient cleared for si, discussed care with medical staff. Patient is currently in withdrawal from benzodiazepines and possible opioid withdrawal sx. patient should be detoxed from current anxiety medications (xanax) and placed on safer alternative for chronic anxiety such as cymbalta in setting of overuse and opioid medications for chronic pain. Patient aware but says she can not afford cymbalta. 1. fluids, vitamins as ordered. 2. benzodiazepine withdrawal sx - valium detox as ordered, nurse advised to use prn dosing of valium liberally. 3. continue fentanyl for chronic pain, adequate breakthrough pain dosing has not been ordered. 4. ca larynx as per primary 5. olivia may benefit from an interdisciplinary pain management program for her anxiety and medication misuse including addition specialist. antoni olivas has prgram such as this. 6. nicotine dependence - gum ordered as per patient request. Kelvin Aguirre MD [phone] - Medication Detox Regimen/Protocol: Valium"
[2018-01-25] MEDS ORDERED: chlordiazePOXIDE HCL 25 MG CAPSULE ONE (15:24)
[2018-01-25] MEDS ORDERED: ACETAMINOPHEN 325 MG TABLET (FP) PO PRN (15:55)
[2018-01-25] MEDS ORDERED: SODIUM CHLORIDE 1,000 ML IV SCH (16:00)
[2018-01-25 23:57] VITALS: BMI 16.2
[2018-01-26 07:57] LABS: BASO % 0.5 % (0-2.0); EOS % 6.1 % (0-4.5); HEMOGLOBIN 10.1 GM/dL (10.7-15.3); LYMPH % 23.2 % (8-40); MCH 30.1 pg (25.7-33.7); MCHC 33.7 g/dl (32.0-36.0); MEAN CELL VOLUME 89.5 fl (80-96); MEAN PLT VOLUME 6.9 fl (7.5-11.1); MONO % 7.8 % (3.8-10.2); NEUT % 62.4 % (42.8-82.8); PLATELET COUNT 218 K/MM3 (134-434); RBC 3.35 M/mm3 (3.60-5.2); RDW 16.5 % (11.6-15.6); WHITE BLOOD COUNT 5.4 K/mm3 (4.0-10.0)
[2018-01-26 08:28] LABS: CHLORIDE 104 mmol/L (98-107); POTASSIUM 4.6 mmol/L (3.5-5.1); SODIUM 141 mmol/L (136-145)
[2018-01-26 08:36] LABS: ANION GAP 10 (8-16); BLOOD UREA NITROGEN 34 mg/dL (7-18); CO2 27 mmol/L (21-32); CREATININE 1.1 mg/dL (0.55-1.02); GLUCOSE,RANDOM 80 mg/dL (74-106); PHOSPHOROUS 3.3 mg/dL (2.5-4.9)
--- NOTE | 2018-01-26 09:15 | HP ---
Admitting History and Physical - Primary Care Physician PCP: Bruce Akers - Admission Chief Complaint: I'm dehydrated History of Present Illness: Ms Rodriguez is a 57 year old female who comes in because of dehydration. She is s /p laryngectomy and did not bring her device for speaking so history is obtained between reading lips and her writing. She says she has a surgery coming up on Monday of next week and she is nervous. Because of this she has been unable to sleep causing her to overtake her medications and also she has not been drinking enough water. She says she "felt" dehydrated and that she needs IVF. She is able to drink by mouth but I do not get a good explanation as to why she is not drinking enough fluid. Aside from nervousness and insomnia she denies fevers, chills, lightheadedness, dizziness, passing out, chest pain or pressure, shortness of breath, abdominal pain, nausea, vomiting, diarrhea, difficulty or pain on urination, or swelling. She endorses constipation but this is chronic. History Source: Patient Limitations to Obtaining History: No Limitations - Past Medical History Heme/Onc: Yes: Cancer (laryngeal) Psych: Yes: Anxiety, Depression - Past Surgical History Additional Past Surgical History: laryngectomy - Smoking History Smoking history: Unknown if ever smoked Have you smoked in the past 12 months: Yes Aproximately how many cigarettes per day: 3 - Alcohol/Substance Use Hx Alcohol Use: No History of Substance Use: reports: None - Social History ADL: Independent History of Recent Travel: No Home Medications - Allergies Allergies/Adverse Reactions: Allergies Allergy/AdvReac Type Severity Reaction Status Date / Time Penicillins Allergy Hives Verified 01/25/18 10:00 - Home Medications Home Medications: Ambulatory Orders Unobtainable [Unobtainable] 01/25/18 Family Disease History - Family Disease History Family History: Unremarkable Review of Systems Findings/Remarks: Full review of systems obtained, as per HPI and otherwise negative. Physical Examination Vital Signs: Vital Signs Temperature 36.9 C 01/26/18 06:00 Pulse Rate 82 01/26/18 06:00 Respiratory Rate 18 01/26/18 02:00 Blood Pressure 100/70 01/26/18 06:00 O2 Sat by Pulse Oximetry (%) 99 01/25/18 23:56 Constitutional: Yes: Well Nourished, No Distress, Calm Eyes: Yes: Conjunctiva Clear, EOM Intact, PERRL HENT: Yes: Atraumatic Neck: Yes: Other (stoma) Cardiovascular: Yes: Regular Rate and Rhythm. No: Gallop, Murmur, Rub Respiratory: Yes: Regular, CTA Bilaterally. No: Rales, Rhonchi, Wheezes Gastrointestinal: Yes: Normal Bowel Sounds, Soft. No: Distention, Tenderness Extremities: Yes: WNL Edema: No Integumentary: Yes: Tenting (minor) Labs: CBC, BMP 01/26/18 06:45 01/26/18 06:45 Problem List - Problems (1) ARCENIO (acute kidney injury) Assessment/Plan: -secondary to decreased oral intake -admit under observation -hydrate with IVF -encourage po intake Code(s): N17.9 - ACUTE KIDNEY FAILURE, UNSPECIFIED (2) Benzodiazepine abuse Assessment/Plan: -Dr Aguirre consulted -awaiting recommendations -poison control consulted and recommended overnight observation Code(s): F13.10 - SEDATIVE, HYPNOTIC OR ANXIOLYTIC ABUSE, UNCOMPLICATED (3) Dehydration Assessment/Plan: -IVF as above Code(s): E86.0 - DEHYDRATION (4) Laryngeal cancer Assessment/Plan: -ENT following as outpatient with surgery planned on Monday per patient (5) Chronic pain Assessment/Plan: -continue duragesic patch Code(s): G89.29 - OTHER CHRONIC PAIN Qualifiers: Chronic pain type: chronic pain syndrome Qualified Code(s): G89.4 - Chronic pain syndrome
--- NOTE | 2018-01-26 09:47 | PN ---
Progress Note (short form) - Note Progress Note: Dr. Amin will document today. Long history of Anxiety on Up o 1.5 mg alprazolam a day. In the last 6 months larynx Ca with surgery and revision and weight loss. Was given Duragesic patch with oxycodone breakthru by surgeon team postop and occ Lorazepam to sleep. She was scheduled to have a trach procedure this coming week but became anxious about it and took more Xanax up to 10 a day. She was also not drinking as much and her outpatient Basic Profile showed a BUN and creatinine elevation which I think contributed to a buildup of her meds. Her lab is improved here on IV Rx. She wants to go home. Her duragesic patch is in place on left shoulder. I think pain and anxiety control need to be addressed here with pain MD and Psych MD.
[2018-01-26] MEDS ORDERED: oxyCODONE HCL 5 MG TABLET PO ONE (09:48)
[2018-01-26] MEDS ORDERED: diazePAM 5 MG TABLET PO ONE (10:32)
[2018-01-26] MEDS ORDERED: NICOTINE POLACRILEX 2 MG GUM BUC PRN (10:39)
--- NOTE | 2018-01-26 12:23 | PN ---
Progress Note, Physician Chief Complaint: Walked in today and patient was sticking the sharpened end of a pencil into her stoma. Made her aware this is unsafe and she stopped, continually asked for tweezers and q-tips. Also frequently attempted to use the pencil again. Aside from this she is without complaint. She denies cp, sob, n/v. - Current Medication List Current Medications: Active Medications Acetaminophen (Tylenol -) 650 mg PO Q4H PRN PRN Reason: FEVER Diazepam (Valium -) 5 mg PO TID [facility] Stop: 01/27/18 22:01 Diazepam (Valium -) 5 mg PO BID VERA Stop: 01/29/18 22:01 Diazepam (Valium -) 5 mg PO DAILY [facility] Stop: 01/30/18 10:01 Diazepam (Valium -) 10 mg PO Q4H PRN PRN Reason: WITHDRAWAL(CONT SUBST) Stop: 01/29/18 10:31 Sodium Chloride (Normal Saline -) 1,000 mls @ 50 mls/hr IV ASDIR [facility] Stop: 01/26/18 15:56 Last Admin: 01/25/18 18:02 Dose: 50 mls/hr Nicotine Polacrilex (Nicorette Gum -) 2 mg BUC Q2H PRN PRN Reason: NICOTINE REPLACEMENT RX Ondansetron HCl (Zofran Injection) 4 mg IVPUSH Q6H PRN PRN Reason: NAUSEA - Objective Vital Signs: Vital Signs Temperature 36.9 C 01/26/18 06:00 Pulse Rate 82 01/26/18 06:00 Respiratory Rate 18 01/26/18 02:00 Blood Pressure 100/70 01/26/18 06:00 O2 Sat by Pulse Oximetry (%) 99 01/25/18 23:56 Constitutional: Yes: No Distress, Calm, Thin Cardiovascular: Yes: Regular Rate and Rhythm. No: Gallop, Murmur, Rub Respiratory: Yes: Regular, CTA Bilaterally. No: Rales, Rhonchi, Wheezes Gastrointestinal: Yes: Normal Bowel Sounds, Soft. No: Distention, Tenderness Extremities: Yes: WNL Edema: No Labs: CBC, BMP 01/26/18 06:45 01/26/18 06:45 Assessment/Plan (1) ARCENIO (acute kidney injury) Assessment/Plan: -resolved with IVF -encourage oral fluid intake Code(s): N17.9 - ACUTE KIDNEY FAILURE, UNSPECIFIED (2) Benzodiazepine abuse Assessment/Plan: -on benzodiazepine taper -psych consult Code(s): F13.10 - SEDATIVE, HYPNOTIC OR ANXIOLYTIC ABUSE, UNCOMPLICATED (3) Dehydration Assessment/Plan: -IVF as above Code(s): E86.0 - DEHYDRATION (4) Laryngeal cancer Assessment/Plan: -ENT following as outpatient with surgery planned on Monday per patient -instructed patient to not stick foreign objects into the stoma -consult respiratory therapist to assist (5) Chronic pain Assessment/Plan: -continue duragesic patch -pain management consult Code(s): G89.29 - OTHER CHRONIC PAIN Qualifiers: Chronic pain type: chronic pain syndrome Qualified Code(s): G89.4 - Chronic pain syndrome
[2018-01-26] MEDS: ONDANSETRON 4 MG/2 ML VIAL IVPUSH PRN ×2 (14:06→21:13)
[2018-01-26] MEDS: diazePAM 5 MG TABLET PO SCH ×2 (14:07→21:13)
--- NOTE | 2018-01-26 14:56 | CON.PSY ---
Psychiatry Consult Chief Complaint: I am never suicidal but I was feeling very anxious, I am a very emotional person> I have lot of pain from Surgeries I had for three Cancers. I dont want to kill mysalf. Symptoms: reports: Depressed Mood, Anxiety - Previous Psychiatric Treatment Outpatient: More than 6 mos ago Inpatient: None - Previous Substance Abuse Treatment Outpatient: None Inpatient: None - Reason for Previous Treatment Reason for Previous Treatment: Major Depression, Anxiety or Panic Disorder - Current Medications Current Medications: Active Medications Acetaminophen (Tylenol -) 650 mg PO Q4H PRN PRN Reason: FEVER Diazepam (Valium -) 5 mg PO TID [facility] Stop: 01/27/18 22:01 Last Admin: 01/26/18 14:07 Dose: 5 mg Diazepam (Valium -) 5 mg PO BID [facility] Stop: 01/29/18 22:01 Diazepam (Valium -) 5 mg PO DAILY [facility] Stop: 01/30/18 10:01 Diazepam (Valium -) 10 mg PO Q4H PRN PRN Reason: WITHDRAWAL(CONT SUBST) Stop: 01/29/18 10:31 Sodium Chloride (Normal Saline -) 1,000 mls @ 50 mls/hr IV ASDIR [facility] Stop: 01/26/18 15:56 Last Admin: 01/25/18 18:02 Dose: 50 mls/hr Nicotine Polacrilex (Nicorette Gum -) 2 mg BUC Q2H PRN PRN Reason: NICOTINE REPLACEMENT RX Ondansetron HCl (Zofran Injection) 4 mg IVPUSH Q6H PRN PRN Reason: NAUSEA Last Admin: 01/26/18 14:06 Dose: 4 mg - Allergies Allergies: Allergies Allergy/AdvReac Type Severity Reaction Status Date / Time Penicillins Allergy Hives Verified 01/25/18 10:00 - Current Living Status Usual Living Arrangement: With Spouse - Current Mental Status Evaluation Appearance: Well Groomed Attitude: Cooperative - Affect Affect: Constrictive Appropriateness: Appropriate to Content - Mood Mood: Depressed - Speech/Language Expressive: Coherent - Psychomotor Activity Psychomotor Activity: Normal - Thought Process Thought Process: Intact - Thought Content Hallucinations: Absent Delusions: Absent - Self Perception Self Perception: No Impairment - Cognition Attention: Alert Orientation: Time Memory, Immediate Recall: Intact Memory, Short Term: 3/3 Memory, Remote with Promptin/3 - Concentration Serial Sevens Intact: Yes Simple Calculations Intact: Yes - Abstraction Proverb Interpretation: Intact Judgement: Minimally Impaired - Insight Insight: Intact - Impulse Control Impulse Control: Minimally Impaired - Suicidal Ideation Suicidal Ideation: No - Homicidal Ideation Homicidal Ideation: No Assessment/Plan 1) Continue with Valium 5mg po tid. 2) Add Remeron 15mg po hs for depression and sleep. 3) No need for 1:1
[2018-01-26] MEDS: diazePAM 5 MG TABLET PO PRN (17:11)
[2018-01-26] MEDS ORDERED: ZOLPIDEM TARTRATE 5 MG TABLET PO PRN (17:27)
[2018-01-26] MEDS ORDERED: ONDANSETRON *ODT* 4 MG TABLET SL PRN (17:28)
[2018-01-26] MEDS: PRENATAL VITAMINS W/ FOLIC ACID TABLET (FP) PO SCH (19:06)
--- NOTE | 2018-01-26 20:48 | HOSP ---
Subjective - Review of Symptoms Events since last encounter: Hospitalist Encounter Notified by the primary RN, that the patient is threatening to leave unless someone comes up to see her regarding her Stoma Care. Subjective: Arrived to bedside, patient is alert, awake and oriented, in no acute resp distress Vitals- T 98.2, P 83, R 18, BP 139/86, Spo2 95% RA Patient has a stoma with a closed cap, she does not have her voice apparatus, so she communicates by mouthing her words, pen/paper. Patient advised that she could not leave AMA, secondary to her current Benzo/ Opioid withdrawal regimen. Patient is amendable Will continue to monitor Physical Examination Vital Signs: Vital Signs Temperature 98.4 F 01/26/18 18:00 Pulse Rate 68 01/26/18 18:00 Respiratory Rate 18 01/26/18 18:00 Blood Pressure 150/80 01/26/18 18:00 O2 Sat by Pulse Oximetry (%) 99 01/26/18 08:00 Constitutional: Yes: No Distress, Anxious, Thin Neck: Yes: Other (Trach stoma- closed cap) Cardiovascular: Yes: WNL, Regular Rate and Rhythm, S1, S2 Respiratory: Yes: Regular, CTA Bilaterally Gastrointestinal: Yes: WNL, Normal Bowel Sounds, Soft Neurological: Yes: WNL, Alert, Oriented, Cran Nerves II-XII Intact ...Motor Strength: WNL Psychiatric: Yes: WNL, Alert, Oriented, Agitated Labs: CBC, BMP 01/26/18 06:45 01/26/18 06:45 Current Medications Generic Name Dose Route Start Last Admin Trade Name Freq PRN Reason Stop Dose Admin Acetaminophen 650 mg 01/25/18 15:55 Tylenol - PO Q4H PRN FEVER Diazepam 5 mg 01/26/18 14:00 01/26/18 14:07 Valium - PO 01/27/18 22:01 5 mg TID VERA Administration Diazepam 5 mg 01/28/18 10:00 Valium - PO 01/29/18 22:01 BID VERA Diazepam 5 mg 01/30/18 10:00 Valium - PO 01/30/18 10:01 DAILY VERA Diazepam 10 mg 01/26/18 10:32 01/26/18 17:11 Valium - PO 01/29/18 10:31 10 mg Q4H PRN Administration WITHDRAWAL(CONT SUBST) Mirtazapine 15 mg 01/26/18 22:00 Remeron - PO HS [facility] Nicotine Polacrilex 2 mg 01/26/18 10:39 Nicorette Gum - BUC Q2H PRN NICOTINE REPLACEMENT RX Ondansetron HCl 4 mg 01/25/18 15:55 01/26/18 14:06 Zofran Injection IVPUSH 4 mg Q6H PRN Administration NAUSEA Ondansetron HCl 4 mg 01/26/18 17:28 Zofran Odt - SL Q6H PRN NAUSEA AND/OR VOMITING Multivit/Folic Acid/Iron 1 tab 01/26/18 17:45 01/26/18 19:06 Vitamins (Sjr) - PO Not Given DAILY [facility] Thiamine HCl 100 mg 01/26/18 22:00 Vitamin B1 - PO HS VERA Zolpidem Tartrate 10 mg 01/26/18 17:27 Ambien - PO HS PRN INSOMNIA Hospitalist Encounter Recommendations/Interventions: Pulmonary Consult
[2018-01-26] MEDS ORDERED: THIAMINE HCL 100 MG TABLET (FP) PO SCH (22:00)
[2018-01-26] MEDS ORDERED: MIRTAZAPINE 15 MG TABLET (FP) PO SCH (22:00)
[2018-01-27 05:59] VITALS: TEMP 98.4
[2018-01-27] MEDS: diazePAM 5 MG TABLET PO SCH (06:22)
[2018-01-27] MEDS ORDERED: FENTANYL PATCH WASTE TD PRN (09:58)
[2018-01-27] MEDS ORDERED: ALPRAZolam 0.25 MG TABLET PO PRN (09:59)
[2018-01-27] MEDS ORDERED: fentaNYL 50mcg/hr PATCH.TD72 TD SCH (10:00)
[2018-01-27] MEDS ORDERED: PT OWN MED DRAWER 7, Y5N ONE (10:01)
[2018-01-27] MEDS ORDERED: oxyCODONE HCL 5 MG TABLET PO PRN (10:02)
--- NOTE | 2018-01-27 10:05 | PN ---
Progress Note, Physician - Current Medication List Current Medications: Active Medications Acetaminophen (Tylenol -) 650 mg PO Q4H PRN PRN Reason: FEVER Diazepam (Valium -) 5 mg PO TID [facility] Stop: 01/27/18 22:01 Last Admin: 01/27/18 06:22 Dose: 5 mg Diazepam (Valium -) 5 mg PO BID [facility] Stop: 01/29/18 22:01 Diazepam (Valium -) 5 mg PO DAILY [facility] Stop: 01/30/18 10:01 Diazepam (Valium -) 10 mg PO Q4H PRN PRN Reason: WITHDRAWAL(CONT SUBST) Stop: 01/29/18 10:31 Last Admin: 01/26/18 17:11 Dose: 10 mg Fentanyl (Duragesic 50mcg Patch -) 1 patch TD Q72H [facility] Stop: 02/03/18 09:59 Mirtazapine (Remeron -) 15 mg PO HS [facility] Last Admin: 01/26/18 21:13 Dose: 15 mg Miscellaneous (Duragesic Patch Waste) 1 each [facility] PRN PRN PRN Reason: PAIN Nicotine Polacrilex (Nicorette Gum -) 2 mg BUC Q2H PRN PRN Reason: NICOTINE REPLACEMENT RX Ondansetron HCl (Zofran Injection) 4 mg IVPUSH Q6H PRN PRN Reason: NAUSEA Last Admin: 01/26/18 21:13 Dose: 4 mg Ondansetron HCl (Zofran Odt -) 4 mg SL Q6H PRN PRN Reason: NAUSEA AND/OR VOMITING Oxycodone HCl (Roxicodone -) 5 mg PO Q6H PRN PRN Reason: PAIN LEVEL 6-10 Multivit/Folic Acid/Iron ( Vitamins (Sjr) -) 1 tab PO DAILY [facility] Last Admin: 01/26/18 19:06 Dose: Not Given Thiamine HCl (Vitamin B1 -) 100 mg PO HS [facility] Last Admin: 01/26/18 21:13 Dose: 100 mg Zolpidem Tartrate (Ambien -) 10 mg PO HS PRN PRN Reason: INSOMNIA - Objective Vital Signs: Vital Signs Temperature 98.4 F 01/27/18 05:58 Pulse Rate 70 01/27/18 05:58 Respiratory Rate 18 01/27/18 05:58 Blood Pressure 128/67 01/27/18 05:58 O2 Sat by Pulse Oximetry (%) 95 01/27/18 01:00 Labs: CBC, BMP 01/26/18 06:45 01/26/18 06:45
[2018-01-27] MEDS: PRENATAL VITAMINS W/ FOLIC ACID TABLET (FP) PO SCH (10:14)
[2018-01-27] MEDS: diazePAM 5 MG TABLET PO PRN (10:14)
[2018-01-27 12:38] VITALS: BP 134/79; PULSE 100
--- NOTE | 2018-01-27 19:56 | DS ---
Physical Examination Vital Signs: Vital Signs Temperature 98.4 F 01/27/18 09:00 Pulse Rate 100 H 01/27/18 09:00 Respiratory Rate 18 01/27/18 09:00 Blood Pressure 134/79 01/27/18 09:00 O2 Sat by Pulse Oximetry (%) 98 01/27/18 09:00 Findings/Remarks: young f looks anxious, communication by writing, feels improved wants to go home HEENT: Mm Moist, anemia, No Icterus, PERRLA, EOMI. NECK: Trachestomy stoma with canula, healthy no discharge or erythema CHEST: Non tender , CTA B/L CVS: S1S2 R No m/g/r ABD: No distention, non tender Bs + EXT: No dale afeet, no calf tenderness, Pulses + CEMENTER OIL WELL: AOX3 non focal walking comfortably on the floor Labs: CBC, BMP 01/26/18 06:45 01/26/18 06:45 Discharge Summary Reason For Visit: BENZODIAZEPINE ABUSE Dehydration ARCENIO Anxiety Ca Larynx s/p Tracheostomy and laryngectomy CHronic pain Hospital Course: 57 yrs old F with H/O Ca Larynx s/p Laryngectomy and tracheotomy, anxiety, Benzodiazepine dependance, chronic pain on opiates was admitted with dehydration and ARCENIO, feeling nervous poor PO intake, unable to sleep, , felt dehydarted, patient was admitted hydrated BUN?Cret Trending normal last lanbs BUN 31 Creat 1.1, patient doesn't want IV wants to go home, evaluated by Pain consult, Substance abuse service and Psych, 1:! was removed as patient has no suicidal or homicidal ideation, patient was insisting for vacuum that he was prescribed during this hospitalization, but i confirmed from Patient pharmacy patient has supply of med till 02/01/2018, yesterday Psych consult prescribed Rameron 15 mg at bed time, patient will F/U with her PMD in a wk to get refer for addiction clinic. Condition: Stable - Instructions Diet, Activity, Other Instructions: As Advised Referrals: Elle Menard MD [Staff Physician] - Bruce Akers MD [Primary Care Provider] - 01/31/18 Kelvin Aguirre MD [Staff Physician] - Jose A Yepez MD [Staff Physician] - Disposition: HOME - Home Medications Comprehensive Discharge Medication List: Ambulatory Orders Alprazolam [Xanax] 0.25 mg PO Q8H PRN #30 tablet MDD 3 01/27/18 FENTANYL 50mcg PATCH [DURAGESIC 50 mcg PATCH -] 1 patch TD Q72H #7 patch.td72 MDD 1 01/27/18 Fentanyl Patch Waste [Duragesic Patch Waste] 1 each TD PRN PRN each 01/27/18 Mirtazapine [Remeron -] 15 mg PO HS 7 Days #7 tablet MDD 1 01/27/18 Nicotine Polacrilex [Nicorelief -] 2 mg BUC Q2H PRN gum 01/27/18 Vitamins (Sjr) - 1 tab PO DAILY tablet 01/27/18 Thiamine HCl [Vitamin B1 -] 100 mg PO HS tablet 01/27/18 Ativan 1 mg BID
[2018-01-28] MEDS ORDERED: diazePAM 5 MG TABLET PO SCH (10:00)
[2018-01-30] MEDS ORDERED: diazePAM 5 MG TABLET PO SCH (10:00)
== END 2018-01-27 12:10 | disposition home or self-care (01) ==
LOC: JER 09:49 → JERBED 15:58 → J6S 18:44
PROVIDERS: ADMIT Internal Medicine; ATTEND Internal Medicine
CPT/HCPCS: 36415; 80048; 80053; 80307; 83735; 84100; 85025; 93005; 93010; 99285-25; G0378; J7030

== ENCOUNTER 2018-03-27 06:20 | Emergency (ER) | payer OTHER ==
[2018-03-27 06:35] VITALS: BMI 15.0
[2018-03-27 08:45] LABS: HEMATOCRIT 37.2 % (32.4-45.2); HEMOGLOBIN 12.7 GM/dL (10.7-15.3); MCH 30.9 pg (25.7-33.7); MCHC 34.1 g/dl (32.0-36.0); MEAN CELL VOLUME 90.8 fl (80-96); MEAN PLT VOLUME 6.5 fl (7.5-11.1); PLATELET COUNT 379 K/MM3 (134-434); RDW 14.7 % (11.6-15.6); WHITE BLOOD COUNT 8.9 K/mm3 (4.0-10.0)
[2018-03-27] MEDS ORDERED: SODIUM CHLORIDE 500 ML IV ONE (09:23)
[2018-03-27] MEDS ORDERED: morphine CARPU-JECT 8 MG/1 ML DISP.SYRIN IVPUSH ONE (09:23)
[2018-03-27] MEDS ORDERED: morphine SULFATE 4 MG/ML VIAL ONE (09:26)
[2018-03-27 10:45] VITALS: BP 128/77; PULSE 89; TEMP 98
--- NOTE | 2018-03-27 11:12 | PDOC ---
History of Present Illness <RosaRuss grider - Last Filed: 03/27/18 10:53> - General History Source: Patient Exam Limitations: No Limitations - History of Present Illness Initial Comments: 03/27/18 11:17 The patient is a 57 year old female, with a significant PMH of laryngeal cancer (06/29) s/p laryngectomy (12/15) s/p vocal prosthesis placed 2 weeks ago, who presents to the emergency department with intermittent bleeding around the vocal prosthesis surgical site. The patient states that two weeks ago she had a vocal prosthesis placed by Dr. Valadez so she could speak. However, the patient states that since 2 weeks ago she has had discomfort around the vocal prosthesis surgical site with intermittent bleeding and has had to suction the tracheostomy herself. The patient states she has had one follow up with the surgeons colleagues (pt. states the surgeon is currently away) but that the vocal prosthesis surgical site was not bleeding as bad as it is now. The patient states she had an episode of worsening bleeding last night which brought her here to the ED this morning for evaluation. She denies any shortness of breath or difficulty breathing. She denies any obstruction. The patient denies chest pain, palpitations, shortness of breath, headache and dizziness. Denies fever, chills, nausea, vomit, diarrhea and constipation. Denies dysuria, frequency, urgency and hematuria. Allergies: Penicillins PCP: Dr. Akers ENT: Dr. 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) Cardiac Disorders: No CVA: No COPD: No CHF: No Dementia: No Diabetes: No GI Disorders: Yes (enlarged colon, constipation; gastroesophageal refllux disease) Disorders: No HTN: No Hypercholesterolemia: No Liver Disease: No Seizures: No Thyroid Disease: No - Family Disease History Family Disease History: Diabetes: Mother, [place]: Father (Prostate) - Immunization History Immunization Up to Date: Yes - Suicide/Smoking/Psychosocial Hx Smoking History: Unknown if ever smoked Have you smoked in the past 12 months: No Number of Cigarettes Smoked Daily: 3 Information on smoking cessation initiated: No 'Breaking Loose' booklet given: 01/25/18 Hx Alcohol Use: No Drug/Substance Use Hx: No Substance Use Type: None Hx Substance Use Treatment: No <Russ Cardenas - Last Filed: 03/27/18 10:53> <Rodrigue Bermudez - Last Filed: 03/27/18 11:38> - Past Medical History Allergies/Adverse Reactions: Allergies Allergy/AdvReac Type Severity Reaction Status Date / Time Penicillins Allergy Hives Verified 03/27/18 06:34 Home Medications: Ambulatory Orders Alprazolam [Xanax] 0.25 mg PO Q8H PRN #30 tablet MDD 3 01/27/18 FENTANYL 50mcg PATCH [DURAGESIC 50 mcg PATCH -] 1 patch TD Q72H #7 patch.td72 MDD 1 01/27/18 Fentanyl Patch Waste [Duragesic Patch Waste] 1 each TD PRN PRN each 01/27/18 Mirtazapine [Remeron -] 15 mg PO HS 7 Days #7 tablet MDD 1 01/27/18 Nicotine Polacrilex [Nicorelief -] 2 mg BUC Q2H PRN gum 01/27/18 Vitamins (Sjr) - 1 tab PO DAILY tablet 01/27/18 Thiamine HCl [Vitamin B1 -] 100 mg PO HS tablet 01/27/18 Review of Systems - Review of Systems Constitutional: No: Chills, Fever HEENTM: Yes: See HPI Respiratory: No: Shortness of Breath, Wheezing ABD/GI: No: Vomiting Integumentary: No: Bruising <Russ Cardenas - Last Filed: 03/27/18 10:53> *Physical Exam - Vital Signs Last Vital Signs Temp Pulse Resp BP Pulse Ox 98.0 F 89 18 128/77 98 03/27/18 10:00 03/27/18 10:00 03/27/18 10:00 03/27/18 10:00 03/27/18 10:00 <Russ Cardenas - Last Filed: 03/27/18 10:53> - Vital Signs Last Vital Signs Temp Pulse Resp BP Pulse Ox 98.0 F 89 18 128/77 98 03/27/18 10:00 03/27/18 10:00 03/27/18 10:00 03/27/18 10:00 03/27/18 10:00 - Physical Exam Comments: 03/27/18 11:20 GENERAL: Well appearing. Patient is walking around the ER. Patient is able to speak intermittently. The patient is awake, alert, and fully oriented, in no acute distress. HEAD: Normal with no signs of trauma. EYES: Pupils equal, round and reactive to light, extraocular movements intact, sclera anicteric, conjunctiva clear with no pallor. ENT: Ears normal, nares patent, oropharynx clear without exudates. Moist mucous membranes. NECK: (+) Tracheostomy site is clean and intact with some dry blood around the 9 oclock region of the trachea site. (+) 7mm scab with likely some recent bleeding but site is intact. No erythema, no swelling and no purulence. No evidence of infection. LUNGS: Patient is breathing comfortably. Breath sounds equal, clear to auscultation bilaterally. No wheeze/crackles. HEART: Regular rate and rhythm, normal S1 and S2 without murmur or rub. ABDOMEN: Soft/nontender/nondistended. BS wnl. No guarding or rebound. No palpable masses. No hepatosplenomegaly. EXTREMITIES: Normal range of motion, no edema. No clubbing or cyanosis. No cords, erythema, or tenderness. NEUROLOGICAL: Cranial nerves II through XII grossly intact. Normal speech, normal gait. PSYCH: Normal mood, normal affect. SKIN: Warm, Dry, normal turgor, no rashes or lesions noted. <Rodrigue Bermudez - Last Filed: 03/27/18 11:38> ED Treatment Course - LABORATORY CBC & Chemistry Diagram: 03/27/18 07:55 - ADDITIONAL ORDERS Additional order review: 03/27/18 07:55 RBC 4.10 D MCV 90.8 MCHC 34.1 RDW 14.7 D MPV 6.5 L - Medications Given in the ED: ED Medications Discontinued Medications Generic Name Dose Route Start Last Admin Trade Name Freq PRN Reason Stop Dose Admin Sodium Chloride 500 mls @ 500 mls/hr 03/27/18 09:23 03/27/18 09:38 Normal Saline - IV 03/27/18 10:22 500 mls/hr ONCE ONE Administration Morphine Sulfate 2 mg 03/27/18 09:23 03/27/18 09:38 Morphine Sulfate IVPUSH 03/27/18 09:24 2 mg ONCE ONE Administration <Russ Cardenas - Last Filed: 03/27/18 10:53> - LABORATORY CBC & Chemistry Diagram: 03/27/18 07:55 - ADDITIONAL ORDERS Additional order review: 03/27/18 07:55 RBC 4.10 D MCV 90.8 MCHC 34.1 RDW 14.7 D MPV 6.5 L - Medications Given in the ED: ED Medications Discontinued Medications Generic Name Dose Route Start Last Admin Trade Name Maykel PRN Reason Stop Dose Admin Sodium Chloride 500 mls @ 500 mls/hr 03/27/18 09:23 03/27/18 09:38 Normal Saline - IV 03/27/18 10:22 500 mls/hr ONCE ONE Administration Morphine Sulfate 2 mg 03/27/18 09:23 03/27/18 09:38 Morphine Sulfate IVPUSH 03/27/18 09:24 2 mg ONCE ONE Administration <Rodrigue Bermudez - Last Filed: 03/27/18 11:38> Medical Decision Making - Medical Decision Making 03/27/18 10:56 57y/o F h/o laryngectomy / laryngeal ca 06/29, s/p vocal prosthesis placement 2 weeks ago presents p/w intermittent bleeding at the surgical site, slightly increased bleeding episode last night with some light headedness so presents today for evaluation. no bleeding today, no difficulty breathing, no cough/f/c. Vital signs stable Patient is very well-appearing, ambulating throughout the emergency department and went upstairs to buy herself a cup of coffee tracheostomy site is clear, about 7mm fresh scab at 9 o'clock, no active bleeding/oozing but there are small specs of dry blood. patent without significant swelling/stridor. lungs clear 57y/o F with intermittent post-op bleeding at site of tracheostomy prosthesis. There is no active bleeding, no acute respiratory distress, no evidence of infection. CBC is normal with stable hemoglobin. Case discussed at length with patient's speech pathologist, Keon Granados who has seen the patient postoperatively together with ENT as recently as late last week, they felt most of her symptoms were due to inadequate saline flushes , a known stricture, and likely medication noncompliance with possible component of drug-seeking behavior. Pt remains well appearing and ambulatory. She was given iv fluids and pain meds at her request and feels better. Plan at this time is for pt to f/u in ENT office tomorrow at 1pm with Roberta and Dr. Gilmore, a colleague of her ENT surgeon. Pt also given info for Dr. Carlson/Jonatan if she desires. Understands return criteria, agrees with d/c plan. <Russ Cardenas - Last Filed: 03/27/18 10:53> - Medical Decision Making 03/27/18 11:[address] Valadez ([facility]) at 9:02 am. Call returned at 10:53. Case discussed with Roberta. <Rodrigue Bermudez - Last Filed: 03/27/18 11:38> *DC/Admit/Observation/Transfer <Russ Cardenas - Last Filed: 03/27/18 10:53> - Attestations Scribe Attestion: 03/27/18 11:21 Documentation prepared by Rodrigue Bermudez, acting as medical asst for Russ Cardenas MD. <Rodrigue Bermudez - Last Filed: 03/27/18 11:38> Diagnosis at time of Disposition: Tracheostomy hemorrhage - Discharge Dispostion Disposition: HOME Condition at time of disposition: Stable - Referrals Referrals: Bruce Akers MD [Primary Care Provider] - Javier Carlson MD [Staff Physician] - Vahid Cheung MD [Staff Physician] - - Patient Instructions Printed Discharge Instructions: How to Take Care of a Tracheostomy Additional Instructions: Activity as tolerated. Stay hydrated. Tylenol 1000 mg every 8 hours as needed for pain. A blood count today is normal. You were given IV fluids and pain medications. Continue tracheostomy care as previously instructed. Continue your medications as previously prescribed by your physician. You should follow up with Roberta and the ENT surgeons TOMORROW AT 1PM regarding today's emergency department visit. They are expecting to see you. You can also call Dr. Price or Jonatan for a second opinion. Return to the emergency department for any new or concerning symptoms, particularly persistent or worsening bleeding, severe swelling or difficulty breathing, fevers or chills. - Post Discharge Activity
== END 2018-03-27 12:05 | disposition home or self-care (01) ==
LOC: JER 06:20
PROC: 3E033NZ Introduction of Analgesics, Hypnotics, Sedatives into Peripheral Vein, Percutaneous Approach (ICD-10-PCS; principal; 2018-03-27)
DX: J95.01 Hemorrhage from tracheostomy stoma (principal); Y83.8 Other surgical procedures as the cause of abnormal reaction of the patient, or of later complication, without mention of misadventure at the time of the procedure; Y82.8 Other medical devices associated with adverse incidents; Z85.21 Personal history of malignant neoplasm of larynx; Z90.02 Acquired absence of larynx; Z96.89 Presence of other specified functional implants
CPT/HCPCS: 36415; 85027; 99284-25

== ENCOUNTER 2018-05-07 14:27 | Emergency (ER) | payer OTHER ==
[2018-05-07 14:32] VITALS: TEMP 97.6; BMI 15.0
[2018-05-07] MEDS ORDERED: SODIUM CHLORIDE 1,000 ML IV STA (16:10)
--- NOTE | 2018-05-07 16:18 | PDOC ---
History of Present Illness - General Chief Complaint: Nausea/Vomiting Stated Complaint: Vomiting/ trached pt Past History - Past Medical History Allergies/Adverse Reactions: Allergies Allergy/AdvReac Type Severity Reaction Status Date / Time Penicillins Allergy Hives Verified 05/07/18 14:28 Home Medications: Ambulatory Orders Alprazolam [Xanax] 0.25 mg PO Q8H PRN #30 tablet MDD 3 01/27/18 FENTANYL 50mcg PATCH [DURAGESIC 50 mcg PATCH -] 1 patch TD Q72H #7 patch.td72 MDD 1 01/27/18 Fentanyl Patch Waste [Duragesic Patch Waste] 1 each TD PRN PRN each 01/27/18 Mirtazapine [Remeron -] 15 mg PO HS 7 Days #7 tablet MDD 1 01/27/18 Nicotine Polacrilex [Nicorelief -] 2 mg BUC Q2H PRN gum 01/27/18 Vitamins (Sjr) - 1 tab PO DAILY tablet 01/27/18 Thiamine HCl [Vitamin B1 -] 100 mg PO HS tablet 01/27/18 Anemia: No Asthma: No 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) Cardiac Disorders: No CVA: No COPD: No CHF: No DVT: No Dementia: No Diabetes: No GI Disorders: Yes (enlarged colon, constipation; gastroesophageal refllux disease) Disorders: No HTN: No Hypercholesterolemia: No Liver Disease: No Seizures: No Thyroid Disease: No - Family Disease History Family Disease History: Diabetes: Mother, [place]: Father (Prostate) - Immunization History Immunization Up to Date: Yes - Suicide/Smoking/Psychosocial Hx Smoking History: Unknown if ever smoked Have you smoked in the past 12 months: No Number of Cigarettes Smoked Daily: 3 Information on smoking cessation initiated: No 'Breaking Loose' booklet given: 01/25/18 Hx Alcohol Use: No Drug/Substance Use Hx: No Substance Use Type: None Hx Substance Use Treatment: No *Physical Exam - Vital Signs Last Vital Signs Temp Pulse Resp BP Pulse Ox 97.6 F 76 18 111/69 100 05/07/18 14:29 05/07/18 14:29 05/07/18 14:29 05/07/18 14:29 05/07/18 14:29 - Physical Exam Comments: 05/07/18 16:18
--- NOTE | 2018-05-07 16:33 | PDOC ---
History of Present Illness - General Chief Complaint: Nausea/Vomiting Stated Complaint: Vomiting/ trached pt - History of Present Illness Initial Comments: 05/07/18 16:31 57 year old female with a hx of laryngeal cancer s/p laryngectomy and recent hospitalization at [facility] presents for 3 day hx of nausea, non- bloody vomiting, tremors, and constipation. She reports that she was on ativan for 4 weeks, and was stopped abruptly after her discharge from [facility] last . Reports that her white blood cell count was up during her hospitalization. Reports subjective fevers and chills. Patient is requesting ativan. States that her constipation is helped with ativan. Allergies: penicillins Smoking: former Alcohol: none Drugs: denies PCP: Dr. Akers (last seen 2 months ago) Past History - Past Medical History Allergies/Adverse Reactions: Allergies Allergy/AdvReac Type Severity Reaction Status Date / Time Penicillins Allergy Hives Verified 05/07/18 14:28 Home Medications: Ambulatory Orders Alprazolam [Xanax] 0.25 mg PO Q8H PRN #30 tablet MDD 3 01/27/18 FENTANYL 50mcg PATCH [DURAGESIC 50 mcg PATCH -] 1 patch TD Q72H #7 patch.td72 MDD 1 01/27/18 Fentanyl Patch Waste [Duragesic Patch Waste] 1 each TD PRN PRN each 01/27/18 Mirtazapine [Remeron -] 15 mg PO HS 7 Days #7 tablet MDD 1 01/27/18 Nicotine Polacrilex [Nicorelief -] 2 mg BUC Q2H PRN gum 01/27/18 Vitamins (Sjr) - 1 tab PO DAILY tablet 01/27/18 Thiamine HCl [Vitamin B1 -] 100 mg PO HS tablet 01/27/18 Anemia: No Asthma: No 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) Cardiac Disorders: No CVA: No COPD: No CHF: No DVT: No Dementia: No Diabetes: No GI Disorders: Yes (enlarged colon, constipation; gastroesophageal refllux disease) Disorders: No HTN: No Hypercholesterolemia: No Liver Disease: No Seizures: No Thyroid Disease: No - Family Disease History Family Disease History: Diabetes: Mother, [place]: Father (Prostate) - Immunization History Immunization Up to Date: Yes - Suicide/Smoking/Psychosocial Hx Smoking History: Unknown if ever smoked Have you smoked in the past 12 months: No Number of Cigarettes Smoked Daily: 3 Information on smoking cessation initiated: No 'Breaking Loose' booklet given: 01/25/18 Hx Alcohol Use: No Drug/Substance Use Hx: No Substance Use Type: None Hx Substance Use Treatment: No Review of Systems - Review of Systems Able to Perform ROS?: Yes Constitutional: Yes: Fever HEENTM: Yes: Throat Pain Respiratory: Yes: Cough. No: Wheezing Cardiac (ROS): No: Chest Pain, Chest Tightness ABD/GI: Yes: Constipated, Nausea, Vomiting Musculoskeletal: Yes: Muscle Pain *Physical Exam - Vital Signs Last Vital Signs Temp Pulse Resp BP Pulse Ox 97.6 F 76 18 111/69 100 05/07/18 14:29 05/07/18 14:29 05/07/18 14:29 05/07/18 14:29 05/07/18 14:29 - Physical Exam Comments: 05/07/18 17:05 GENERAL: A&Ox3, no acute distress EYES: PERRLA, EOMI ENT: Patient has tracheal prosthesis NECK: No JVD LUNGS: CTA, no wheezes HEART: RRR, no murmurs ABDOMEN: Soft, nontender, BS present MUSCULOSKELETAL: No CVA Tenderness EXTREMITIES: 2+ pulses, no edema. NEUROLOGICAL: Cranial nerves II-XII intact. ED Treatment Course - LABORATORY CBC & Chemistry Diagram: 05/07/18 17:23 05/07/18 17:23 Medical Decision Making - Medical Decision Making 05/07/18 17:10 57 yo female with hx layrngeal cancer and benzo/oxy use presents for 3 days n/v/ constipation and tremors -cbc, cmp, lipase, ekg -1000cc NS bolus -zofran -lyrica -senna/colace 05/07/18 18:26 -patient feels better and is eating dinner, requesting more food -she has an ARCENIO with creatinine 1.5, will hydrate patient orally, not far from previous admissions -if patient is stable can likely send home with close PCP followup 05/07/18 18:51 -patient hydrated and will send home with PCP followup *DC/Admit/Observation/Transfer Diagnosis at time of Disposition: Nausea & vomiting, ARCENIO (acute kidney injury) - Discharge Dispostion Disposition: HOME Condition at time of disposition: Stable Decision to Admit order: No - Referrals - Patient Instructions Additional Instructions: You were seen in the hospital for nausea and vomiting. Your blood counts were normal. Your electrolytes show that you are likely dehydrated. Please drink plenty of water, 8-10 cups a day. Please make an appointment with Dr. Akers within 1 week of discharge If you experience worsening nausea, vomiting, fevers, chills, chest pain, shortness of breath, please return to the emergency room. - Post Discharge Activity
[2018-05-07] MEDS ORDERED: DOCUSATE SODIUM 100 MG CAPSULE (FP) PO ONE ×3 (16:39→17:48)
[2018-05-07] MEDS ORDERED: SENNOSIDES 8.6MG TABLET (FP) PO ONE (16:47)
[2018-05-07] MEDS ORDERED: ONDANSETRON 4 MG/2 ML VIAL IVPUSH ONE (16:54)
[2018-05-07] MEDS ORDERED: ONDANSETRON 4 MG/2 ML VIAL ONE (17:06)
[2018-05-07] MEDS ORDERED: PREGABALIN 25 MG CAPSULE PO ONE (17:18)
[2018-05-07 17:29] LABS: HEMATOCRIT 32.3 % (32.4-45.2); HEMOGLOBIN 10.9 GM/dL (10.7-15.3); MCH 30.7 pg (25.7-33.7); MCHC 33.8 g/dl (32.0-36.0); MEAN CELL VOLUME 90.8 fl (80-96); MEAN PLT VOLUME 6.8 fl (7.5-11.1); PLATELET COUNT 391 K/MM3 (134-434); RBC 3.56 M/mm3 (3.60-5.2); RDW 14.2 % (11.6-15.6); WHITE BLOOD COUNT 9.4 K/mm3 (4.0-10.0)
[2018-05-07] MEDS ORDERED: PREGABALIN 25 MG CAPSULE ONE (17:48)
[2018-05-07 17:52] LABS: ALBUMIN 3.5 g/dl (3.4-5.0); ALK PHOS 145 U/L (45-117); ANION GAP 8 (8-16); BILIRUBIN,TOTAL 0.2 mg/dL (0.2-1.0); BLOOD UREA NITROGEN 40 mg/dL (7-18); CALCIUM 8.9 mg/dL (8.5-10.1); CHLORIDE 102 mmol/L (98-107); CO2 29 mmol/L (21-32); CREATININE 1.5 mg/dL (0.55-1.02); GLUCOSE,RANDOM 101 mg/dL (74-106); LIPASE 280 U/L (73-393); POTASSIUM 3.9 mmol/L (3.5-5.1); SGOT/AST 17 U/L (15-37); SGPT/ALT 22 U/L (12-78); SODIUM 139 mmol/L (136-145); TOT PROT 7.2 g/dl (6.4-8.2)
[2018-05-07 18:25] LABS: PLATELET ESTIMATE ADEQUATE
--- NOTE | 2018-05-07 18:54 | PDOC ---
Attending Attestation - Physicial Exam PE: 05/07/18 19:00 GENERAL: (+) Cachectic; Well-appearing. No apparent distress. HEENT: (+) With prosthetic trachea s/p laryngectomy; Normocephalic. PERRL, EOM intact. CARDIOVASCULAR: (+) As per Dr. Quispe note. PULMONARY: (+) As per Dr. Quispe note. ABDOMEN: Soft, non-distended, non-tender. EXTREMITIES: Normal ROM in all four extremities. No gross deformities. SKIN: Warm, dry. No rash NEUROLOGICAL: No focal neurological deficits. Alert and oriented x3. Ambulatory. - Medical Decision Making 05/07/18 19:00 Documentation prepared by Jannet Cuellar, acting as product manager medical device for Anju Barrera MD. <Jannet Cuellar - Last Filed: 05/07/18 18:55> - Resident Resident Name: Vahid Gonzales - ED Attending Attestation I have performed the following: I have examined & evaluated the patient, The case was reviewed & discussed with the resident, I agree w/resident's findings & plan, Exceptions are as noted - HPI HPI: 05/08/18 00:28 57 yo female laryngeal cancer s/p largyngectomy presents w complaint of constipation and anxiety - Medical Decision Making 05/08/18 00:27 IMP anxiety,constipation -pt to continue her meds for constipation pt to follow up with her psychiatrist and primary doctor <Anju Barrera - Last Filed: 05/08/18 00:29>
[2018-05-07 19:07] VITALS: BP 130/79; PULSE 87
--- NOTE | 2018-05-09 13:06 | EKG ---
Test Reason : Blood Pressure : / mmHG Vent. Rate : 078 BPM Atrial Rate : 078 BPM P-R Int : 140 ms QRS Dur : 090 ms QT Int : 402 ms P-R-T Axes : 074 038 070 degrees QTc Int : 458 ms NORMAL SINUS RHYTHM CANNOT RULE OUT ANTERIOR INFARCT (CITED ON OR BEFORE 23-JUN-2014) ABNORMAL ECG WHEN COMPARED WITH ECG OF 25-JAN-2018 10:24, NO SIGNIFICANT CHANGE WAS FOUND Confirmed by FELIPE ARIAS MD ([id number]) on 05/09/2018 1:06:25 PM Referred By: Confirmed By:FELIPE ARIAS MD
== END 2018-05-07 19:07 | disposition home or self-care (01) ==
LOC: JER 14:27
PROC: 3E0337Z Introduction of Electrolytic and Water Balance Substance into Peripheral Vein, Percutaneous Approach (ICD-10-PCS; principal; 2018-05-07)
PROC: 3E033GC Introduction of Other Therapeutic Substance into Peripheral Vein, Percutaneous Approach (ICD-10-PCS; 2018-05-07)
DX: F41.9 Anxiety disorder, unspecified (principal); G25.2 Other specified forms of tremor; K59.00 Constipation, unspecified; Z85.21 Personal history of malignant neoplasm of larynx; Z90.02 Acquired absence of larynx
CPT/HCPCS: 36415; 80053; 83690; 85025; 93005; 93010; 99283-25; J7030

== ENCOUNTER 2018-05-09 13:05 | Observation (INO) | payer OTHER ==
[2018-05-09] MEDS ORDERED: ONDANSETRON 4 MG/2 ML VIAL IVPUSH ONE (13:39)
[2018-05-09] MEDS ORDERED: ALBUTEROL SO4 2.5/IPRATROPIUM 0.5 INH SOL 3 ML VIAL.NEB. NEB ONE ×2 (13:40→14:35)
[2018-05-09] MEDS ORDERED: methylPREDNISolone NA SUCC 125 MG/2 ML VIAL IVPB ONE (13:43)
--- NOTE | 2018-05-09 13:53 | PDOC ---
History of Present Illness - General Chief Complaint: Nausea/Vomiting Stated Complaint: REVISIT/ VOMITING (PCP SENT) Time Seen by Provider: 05/09/18 13:31 History Source: Patient Exam Limitations: No Limitations - History of Present Illness Initial Comments: 05/09/18 13:47 Patient is a 57F with history of laryngeal cancer s/p laryngectomy and trach with reversal here today complaining of shortness of breath and vomiting. Patient was sent in by Dr Akers after been found to be hypoxic to the 80s with a temp of 99.7 orally. Patient endorses fevers, chills, shortness of breath and chest pain. Denies history of blood clots and leg swelling. Patient denies history of COPD. Patient states that she has pain over a surgical site on her left chest. Patient was seen in the ED two days ago for nausea and vomiting where she was treated with fluids, zofran and discharged. Past History - Past Medical History Allergies/Adverse Reactions: Allergies Allergy/AdvReac Type Severity Reaction Status Date / Time Penicillins Allergy Hives Verified 05/09/18 15:26 Home Medications: Ambulatory Orders Alprazolam 0.25 mg PO Q4H 05/09/18 Folic Acid 1 mg PO DAILY 05/09/18 LORazepam [Ativan] 0.25 mg PO BID 05/09/18 Levothyroxine Sodium [Levoxyl] 75 mcg PO DAILY 05/09/18 Linaclotide [Linzess] 290 mcg PO DAILY 05/09/18 Lubiprostone [Amitiza] 24 mcg PO BID 05/09/18 Multivitamin with Iron [Daily Socrates with Iron] 1 each PO DAILY 05/09/18 Pregabalin [Lyrica -] 150 mg PO TID 05/09/18 Thiamine HCl 500 mg PO DAILY 05/09/18 Trazodone HCl 200 mg PO HS 05/09/18 Anemia: No Asthma: No 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) Cardiac Disorders: No CVA: No COPD: No CHF: No DVT: No Dementia: No Diabetes: No GI Disorders: Yes (enlarged colon, constipation; gastroesophageal refllux disease) Disorders: No HTN: No Hypercholesterolemia: No Liver Disease: No Seizures: No Thyroid Disease: No - Family Disease History Family Disease History: Diabetes: Mother, [place]: Father (Prostate) - Immunization History Immunization Up to Date: Yes - Suicide/Smoking/Psychosocial Hx Smoking History: Unknown if ever smoked Have you smoked in the past 12 months: No Number of Cigarettes Smoked Daily: 3 Information on smoking cessation initiated: No 'Breaking Loose' booklet given: 01/25/18 Hx Alcohol Use: No Drug/Substance Use Hx: No Substance Use Type: None Hx Substance Use Treatment: No Review of Systems - Review of Systems Comments:: 05/09/18 13:52 GENERAL/CONSTITUTIONAL: +fever, chills. +weakness. HEAD, EYES, EARS, NOSE AND THROAT: No change in vision. No sore throat. CARDIOVASCULAR: +chest pain +shortness of breath RESPIRATORY: +cough, +wheezing, No hemoptysis. GASTROINTESTINAL: + nausea, vomiting, constipation. GENITOURINARY: No dysuria, frequency, or change in urination. MUSCULOSKELETAL: No joint or muscle swelling or pain. No neck or back pain. SKIN: No rash NEUROLOGIC: +headache. No vertigo, loss of consciousness, or change in strength/ sensation. ENDOCRINE: No increased thirst. No abnormal weight change HEMATOLOGIC/LYMPHATIC: No anemia, easy bleeding, or history of blood clots. ALLERGIC/IMMUNOLOGIC: No hives or skin allergy. *Physical Exam - Vital Signs Last Vital Signs Temp Pulse Resp BP Pulse Ox 98.3 F 60 16 124/77 99 05/09/18 13:24 05/09/18 13:24 05/09/18 13:24 05/09/18 13:24 05/09/18 13:24 - Physical Exam Comments: 05/09/18 13:53 GENERAL: Awake, alert, and fully oriented, in no acute distress HEAD: No signs of trauma, normocephalic, atraumatic EYES: PERRLA, EOMI, sclera anicteric, conjunctiva clear ENT: Auricles normal inspection, hearing grossly normal, nares patent, oropharynx clear without exudates. Moist mucosa. Well appearing former trach site with voice box. NECK: Normal ROM, supple, no lymphadenopathy, JVD, or masses LUNGS: No distress, speaks full sentences, scattered wheezes bilaterally HEART: Regular rate and rhythm, normal S1 and S2, no murmurs, rubs or gallops, peripheral pulses normal and equal bilaterally. ABDOMEN: Soft, nontender, normoactive bowel sounds. No guarding, no rebound. No masses EXTREMITIES: Normal inspection, Normal range of motion, no edema. No clubbing or cyanosis. NEUROLOGICAL: Cranial nerves II through XII grossly intact. Normal speech, normal gait, no focal sensorimotor deficits SKIN: Warm, Dry, normal turgor, no rashes or lesions noted. ED Treatment Course - LABORATORY CBC & Chemistry Diagram: 05/09/18 14:00 05/09/18 14:00 - RADIOLOGY Radiology Studies Ordered: Category Date Time Status CHEST X-RAY PORTABLE* [RAD] Stat Radiology 05/09/18 13:40 Ordered Medical Decision Making - Medical Decision Making 05/09/18 13:54 Patient is 57F with history of laryngeal cancer s/p laryngectomy here today with shortness of breath. Vital signs normal and stable here, hypoxic at PMD. Patient complains of belly pain and nausea, but is asking to eat and has non- tender abdominal exam. DDx is weighted towards COPD, pneumonia, emphysema. Will evaluate with cbc, cmp, lipase, ekg, cxr, trop, pt/inr, cxr. Will treat with zofran, duonebs, steroids. 05/09/18 16:11 Laboratory Tests 05/09/18 05/09/18 05/09/18 14:00 14:00 15:04 WBC 9.5 Hgb 11.4 Plt Count 364 Sodium 135 L BUN 46 H Creatinine 1.7 H Troponin I < 0.02 Urine WBC (Auto) 6 Urine RBC (Auto) 1 CBC normal. CMP reassuring. Troponin undetectable. CXR shows likely atelectasis , possible infiltrate on lower left lobe. 05/09/18 22:08 Admitted to obs via Dr Amin. *DC/Admit/Observation/Transfer Diagnosis at time of Disposition: COPD (chronic obstructive pulmonary disease) - Discharge Dispostion Condition at time of disposition: Stable Decision to Admit order: Yes - Referrals - Patient Instructions - Post Discharge Activity
[2018-05-09 14:24] LABS: BASO % 0.4 % (0-2.0); EOS % 2.6 % (0-4.5); HEMATOCRIT 33.6 % (32.4-45.2); HEMOGLOBIN 11.4 GM/dL (10.7-15.3); LYMPH % 14.1 % (8-40); MCH 30.8 pg (25.7-33.7); MCHC 33.9 g/dl (32.0-36.0); MEAN CELL VOLUME 90.9 fl (80-96); MEAN PLT VOLUME 7.1 fl (7.5-11.1); MONO % 5.9 % (3.8-10.2); PLATELET COUNT 364 K/MM3 (134-434); RBC 3.69 M/mm3 (3.60-5.2); RDW 14.2 % (11.6-15.6); WHITE BLOOD COUNT 9.5 K/mm3 (4.0-10.0)
[2018-05-09 14:35] LABS: CHLORIDE 98 mmol/L (98-107); SODIUM 135 mmol/L (136-145)
[2018-05-09] MEDS ORDERED: ONDANSETRON 4 MG/2 ML VIAL ONE (14:36)
[2018-05-09] MEDS ORDERED: methylPREDNISolone NA SUCC 125 MG/2 ML VIAL ONE (14:36)
[2018-05-09 14:41] LABS: ALBUMIN 3.9 g/dl (3.4-5.0); ANION GAP 8 (8-16); BILIRUBIN,TOTAL 0.2 mg/dL (0.2-1.0); BLOOD UREA NITROGEN 46 mg/dL (7-18); CALCIUM 9.5 mg/dL (8.5-10.1); CO2 29 mmol/L (21-32); CREATININE 1.7 mg/dL (0.55-1.02); GLUCOSE,RANDOM 117 mg/dL (74-106); PHOSPHOROUS 3.7 mg/dL (2.5-4.9); SGPT/ALT 21 U/L (12-78); TOT PROT 7.8 g/dl (6.4-8.2)
[2018-05-09 14:42] LABS: ALK PHOS 122 U/L (45-117)
[2018-05-09 14:48] LABS: LIPASE 223 U/L (73-393); MAGNESIUM 1.9 mg/dL (1.8-2.4); POTASSIUM 4.6 mmol/L (3.5-5.1); SGOT/AST 15 U/L (15-37)
[2018-05-09 15:31] LABS: URINE APPEARANCE CLEAR; URINE BILIRUBIN NEGATIVE (<2.0 mg/dL); URINE COLOR STRAW; URINE GLUCOSE (UA) NEGATIVE (NEGATIVE); URINE KETONE NEGATIVE (NEGATIVE); URINE LEUK ESTERASE TRACE (NEGATIVE); URINE NITRITE NEGATIVE (NEGATIVE); URINE PROTEIN NEGATIVE (NEGATIVE); URINE UROBILINOGEN NEGATIVE mg/dL (0.2-1.0)
[2018-05-09 15:49] LABS: EPI CELLS RARE /HPF (FEW)
[2018-05-09 15:55] LABS: PLATELET ESTIMATE ADEQUATE
[2018-05-09] MEDS ORDERED: SODIUM CHLORIDE 1,000 ML IV STA (16:11)
--- NOTE | 2018-05-09 16:21 | PDOC ---
Attending Attestation - Medical Decision Making 05/09/18 17:00 Chest X-Ray was reviewed by Dr. Spencer and overread by Radiology. Impression: Mild atelectatic changes in the left lung base with suggestion of mild infiltrates. Follow-up is needed. <Maribel Ramos - Last Filed: 05/09/18 16:58> - Resident Resident Name: Bruce Anderson - ED Attending Attestation I have performed the following: I have examined & evaluated the patient, The case was reviewed & discussed with the resident, I agree w/resident's findings & plan, Exceptions are as noted - HPI HPI: 05/09/18 18:08 The patient is a 57-year-old female, with a significant past medical history of laryngeal cancer, s/p laryngectomy and trach placement, who was sent to the ED from Dr. Cartwright office after the patient was noted to be hypoxic in the 80s and had an oral temperature of 99.7. On exam, the patient endorses chest pain, shortness of breath, and nausea. The patient was seen in the ED 2 days ago for nausea and vomiting and was administered zofran, fluids, and was discharged after negative work up. Denies vomiting, diarrhea, constipation, and abdominal pain. Denies dysuria, frequency, urgency, and hematuria. Allergies: Penicillins Social history: No reported cigarette, alcohol, or drug use. PCP: Dr. Akers - Physicial Exam PE: 05/09/18 18:09 agree with resident exam - Medical Decision Making 05/09/18 18:09 57yo F with MMP including laryngeal ca s/p trach with reversal presents to the ED with fever, hypoxia at Dr. Akers's office. Pt has infiltrate on CXR with rales on exam, consistent with likely PNA. WIll cover with abx and admit. <Vannesa Spencer - Last Filed: 05/09/18 18:13>
[2018-05-09] MEDS ORDERED: ONDANSETRON 4 MG/2 ML VIAL IVPUSH PRN (16:49)
--- NOTE | 2018-05-09 16:55 | HP ---
Admitting History and Physical - Primary Care Physician PCP: Bruce Akers - Admission Chief Complaint: I'm sick History of Present Illness: Mrs Rodriguez is a 57 year old female who comes in after being found to have low oxygen saturations in the office. She was recently at [facility] for 2 weeks ( unclear reasons exactly but possibly for inpatient psychiatric treatment) and was recently released. She says she was released last week and was not prescribed multiple medications including xanax, valium, and lyrica. Since then she says she has not been feeling well. She has been having nausea with vomiting. She says it looks like phlegm and some undigested food. She denies bright red blood or coffee ground emesis. She says she is chronically constipated and denies hematochezia or melena. She says she has severe shaking and chills with this. She says she is short of breath with a non-productive cough. She complains of pain "everywhere" but particularly in her arms and legs. She denies fevers, lightheadedness, passing out, chest pain, difficulty or pain on urination, or swelling. She continuously asks to be given lyrica and valium. History Source: Patient Limitations to Obtaining History: No Limitations - Past Medical History Heme/Onc: Yes: Cancer (laryngeal) Psych: Yes: Anxiety, Depression - Past Surgical History Additional Past Surgical History: Laryngectomy - Smoking History Smoking history: Unknown if ever smoked Have you smoked in the past 12 months: No Aproximately how many cigarettes per day: 3 - Alcohol/Substance Use Hx Alcohol Use: No History of Substance Use: reports: None - Social History Usual Living Arrangement: Yes: With Spouse ADL: Independent History of Recent Travel: No Home Medications - Allergies Allergies/Adverse Reactions: Allergies Allergy/AdvReac Type Severity Reaction Status Date / Time Penicillins Allergy Hives Verified 05/09/18 15:26 - Home Medications Home Medications: Ambulatory Orders Alprazolam 0.25 mg PO Q4H 05/09/18 Folic Acid 1 mg PO DAILY 05/09/18 LORazepam [Ativan] 0.25 mg PO BID 05/09/18 Levothyroxine Sodium [Levoxyl] 75 mcg PO DAILY 05/09/18 Linaclotide [Linzess] 290 mcg PO DAILY 05/09/18 Lubiprostone [Amitiza] 24 mcg PO BID 05/09/18 Multivitamin with Iron [Daily Socrates with Iron] 1 each PO DAILY 05/09/18 Pregabalin [Lyrica -] 150 mg PO TID 05/09/18 Thiamine HCl 500 mg PO DAILY 05/09/18 Trazodone HCl 200 mg PO HS 05/09/18 Family Disease History - Family Disease History Family History: Unremarkable Review of Systems Findings/Remarks: Full review of systems obtained, as per HPI and otherwise negative Physical Examination Vital Signs: Vital Signs Temperature 36.8 C 05/09/18 13:24 Pulse Rate 60 05/09/18 13:24 Respiratory Rate 16 05/09/18 13:24 Blood Pressure 124/77 05/09/18 13:24 O2 Sat by Pulse Oximetry (%) 99 05/09/18 13:24 Constitutional: Yes: Anxious, Thin Eyes: Yes: Conjunctiva Clear, EOM Intact, PERRL HENT: Yes: Atraumatic, Normocephalic Cardiovascular: Yes: Regular Rate and Rhythm. No: Gallop, Murmur, Rub Respiratory: Yes: Regular, CTA Bilaterally. No: Rales, Rhonchi, Wheezes Gastrointestinal: Yes: Normal Bowel Sounds, Soft. No: Distention, Tenderness Extremities: Yes: WNL Edema: No Labs: CBC, BMP 05/09/18 14:00 05/09/18 14:00 Imaging - Results Chest X-ray: Report Reviewed, Image Reviewed Problem List - Problems (1) Withdrawal from benzodiazepine Assessment/Plan: -considering constellation of symptoms, highly suspicious for opioid withdrawal -also valium was refilled on 04/12 and xanax on 04/19 -however she was in the hospital for 2 weeks this month and says she is out which is concerning for abuse -will place on lower dose ativan and lyrica currently -consult psychiatry for assistance Code(s): F13.239 - SEDATV/HYP/ANXIOLYTC DEPENDENCE W WITHDRAWAL, UNSP Qualifiers: Complication of substance-induced condition: uncomplicated Qualified Code(s ): F13.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 - Sedative, hypnotic or anxiolytic dependence with withdrawal, uncomplicated (2) ARCENIO (acute kidney injury) Assessment/Plan: -secondary to nausea/vomiting with decreased intake -hydration with IVF -monitor Code(s): N17.9 - ACUTE KIDNEY FAILURE, UNSPECIFIED (3) Chronic pain Assessment/Plan: -consult pain management -will place on lyrical bid currently (was taking tid) Code(s): G89.29 - OTHER CHRONIC PAIN Qualifiers: Chronic pain type: chronic pain syndrome Qualified Code(s): G89.4 - Chronic pain syndrome (4) Laryngeal cancer Assessment/Plan: -s/p laryngectomy (5) Nausea & vomiting Assessment/Plan: -zofran prn -IV hydration -suspect secondary to withdrawals Code(s): R11.2 - NAUSEA WITH VOMITING, UNSPECIFIED (6) Shortness of breath Assessment/Plan: -subjective -normal oxygen sats on RA and normal ABG -will place on combivent tid for short time -no need to continue solumedrol Code(s): R06.02 - SHORTNESS OF BREATH (7) Hypothyroid Assessment/Plan: -continue synthroid Code(s): E03.9 - HYPOTHYROIDISM, UNSPECIFIED (8) Constipation due to pain medication therapy Assessment/Plan: -continue outpatient regimen -expect to improve with hydration Code(s): K59.03 - DRUG INDUCED CONSTIPATION
[2018-05-09] MEDS ORDERED: SODIUM CHLORIDE 1,000 ML IV SCH (17:15)
[2018-05-09] MEDS ORDERED: PREGABALIN 50 MG CAPSULE PO ONE (17:15)
[2018-05-09] MEDS ORDERED: PREGABALIN 50 MG CAPSULE ONE (17:20)
[2018-05-09] MEDS ORDERED: PREGABALIN 100 MG CAPSULE ONE (17:21)
[2018-05-09] MEDS ORDERED: LORazepam 0.5 MG TABLET ONE (17:21)
[2018-05-09] MEDS: LORazepam 1 MG TABLET PO PRN (17:27)
[2018-05-09 18:10] LABS: ARTERIAL BLD GAS O2 SATURATION 97.1 % (90-98.9); ARTERIAL BLOOD GAS PCO2 38.1 mmHg (35-45); ARTERIAL BLOOD GAS PO2 87.2 mmHg (80-100); ARTERIAL BLOOD GAS pH 7.43 (7.35-7.45); CARBOXYHEMOGLOBIN 1.7 gm% (0.5-2.0)
[2018-05-09] MEDS: ALBUTEROL SO4 0.083% IH SOL 2.5 MG/3 ML VIAL.NEB. NEB SCH (21:00)
[2018-05-09] MEDS: IPRATROPIUM BR 0.02% 0.5 MG/2.5 ML VIAL.NEB. NEB SCH (21:00)
[2018-05-09] MEDS ORDERED: PATIENT'S OWN MEDICATION (NON-FORMULARY) (Lubiprostone [Amitiza] 24 MCG) PO SCH (22:00)
[2018-05-10] MEDS: ACETAMINOPHEN 325 MG TABLET (FP) PO PRN ×4 (00:42→20:24)
[2018-05-10] MEDS: LEVOTHYROXINE NA 75 MCG TABLET (FP) PO SCH (06:18)
[2018-05-10] MEDS: ALBUTEROL SO4 0.083% IH SOL 2.5 MG/3 ML VIAL.NEB. NEB SCH (07:41)
[2018-05-10] MEDS: IPRATROPIUM BR 0.02% 0.5 MG/2.5 ML VIAL.NEB. NEB SCH (07:41)
[2018-05-10 07:57] LABS: BASO % 0.4 % (0-2.0); EOS % 0.9 % (0-4.5); HEMATOCRIT 27.1 % (32.4-45.2); HEMOGLOBIN 9.2 GM/dL (10.7-15.3); LYMPH % 16.1 % (8-40); MCH 31.2 pg (25.7-33.7); MCHC 34.1 g/dl (32.0-36.0); MEAN CELL VOLUME 91.5 fl (80-96); MEAN PLT VOLUME 6.9 fl (7.5-11.1); NEUT % 75.6 % (42.8-82.8); PLATELET COUNT 292 K/MM3 (134-434); RBC 2.96 M/mm3 (3.60-5.2); RDW 14.3 % (11.6-15.6); WHITE BLOOD COUNT 10.2 K/mm3 (4.0-10.0)
[2018-05-10] MEDS ORDERED: SENNOSIDES 8.6MG TABLET (FP) PO PRN (08:13)
--- NOTE | 2018-05-10 08:16 | PN ---
Progress Note (short form) - Note Progress Note: Dr. Amin to document today Feels better with IV fluids and less tremulous today. Mostly anxious and says she is not depressed but await opinion of Psychiatry and Pain MD.
[2018-05-10 08:28] LABS: ANION GAP 9 (8-16); BLOOD UREA NITROGEN 32 mg/dL (7-18); CALCIUM 8.2 mg/dL (8.5-10.1); CHLORIDE 107 mmol/L (98-107); CO2 26 mmol/L (21-32); CREATININE 1.2 mg/dL (0.55-1.02); GLUCOSE,RANDOM 96 mg/dL (74-106); MAGNESIUM 1.7 mg/dL (1.8-2.4); PHOSPHOROUS 2.1 mg/dL (2.5-4.9); POTASSIUM 4.1 mmol/L (3.5-5.1); SODIUM 142 mmol/L (136-145)
--- NOTE | 2018-05-10 08:56 | CONSULT ---
Consult Consult Specialty:: Pain Management - History of Present Illness Chief Complaint: generalized pain with anxiety History of Present Illness: 57 yr old female with generalized pain in throat, chest wall and left thigh and taking Lyrica and Ativan which is helping her. She has multiple medical comorbidity. She is very anxious. - History Source History Provided By: Patient, Medical Record (she has tracheostomy ) - Past Medical History Psych: Yes: Anxiety, Depression - Past Surgical History Additional Surgical History: Tracheostomy , cardiac surgery. - Alcohol/Substance Use Hx Alcohol Use: No History of Substance Use: reports: None - Smoking History Smoking history: Unknown if ever smoked Have you smoked in the past 12 months: No Aproximately how many cigarettes per day: 3 - Social History Usual Living Arrangement: With Spouse ADL: Independent History of Recent Travel: No Home Medications - Allergies Allergies/Adverse Reactions: Allergies Allergy/AdvReac Type Severity Reaction Status Date / Time Penicillins Allergy Hives Verified 05/09/18 15:26 - Home Medications Home Medications: Ambulatory Orders Alprazolam 0.25 mg PO Q4H 05/09/18 Folic Acid 1 mg PO DAILY 05/09/18 LORazepam [Ativan] 0.25 mg PO BID 05/09/18 Levothyroxine Sodium [Levoxyl] 75 mcg PO DAILY 05/09/18 Linaclotide [Linzess] 290 mcg PO DAILY 05/09/18 Lubiprostone [Amitiza] 24 mcg PO BID 05/09/18 Multivitamin with Iron [Daily Socrates with Iron] 1 each PO DAILY 05/09/18 Pregabalin [Lyrica -] 150 mg PO TID 05/09/18 Thiamine HCl 500 mg PO DAILY 05/09/18 Trazodone HCl 200 mg PO HS 05/09/18 Review of Systems - Review of Systems Constitutional: reports: No Symptoms Eyes: reports: No Symptoms HENT: reports: No Symptoms, Throat Pain, Other Respiratory: reports: Cough Gastrointestinal: reports: No Symptoms Genitourinary: reports: No Symptoms Neurological: reports: No Symptoms Psychiatric: reports: Anxiety, Depression Physical Exam Vital Signs: Vital Signs Temperature 97.9 F 05/10/18 05:40 Pulse Rate 82 05/10/18 05:40 Respiratory Rate 18 05/10/18 05:40 Blood Pressure 145/75 05/10/18 05:40 O2 Sat by Pulse Oximetry (%) 97 05/10/18 00:24 Constitutional: Yes: Well Nourished Eyes: Yes: WNL HENT: Yes: Other (Trachesotomy) Neck: Yes: WNL Gastrointestinal: Yes: WNL Labs: CBC, BMP 05/10/18 07:00 05/10/18 07:00 Assessment/Plan discussed in detail and answered all question. she expressed most of thing by writting . She is very comfortable with Lyrica and Atrovent . we will contimue Psych eval will be more beneficial for her. Thanks Dr. Yepez [phone]
[2018-05-10] MEDS ORDERED: PT OWN MED DRAWER 7, Y5N ONE (09:26)
[2018-05-10] MEDS: MULTIVITAMINS (DAILY MVI) TABLET (FP) PO SCH (09:31)
[2018-05-10] MEDS: PREGABALIN 75 MG CAPSULE PO SCH ×2 (09:31→22:28)
[2018-05-10] MEDS: FOLIC ACID 1 MG TABLET (FP) PO SCH (09:31)
[2018-05-10] MEDS: LORazepam 1 MG TABLET PO PRN (09:32)
[2018-05-10] MEDS ORDERED: THIAMINE HCL 500 MG PO SCH (10:00)
[2018-05-10] MEDS ORDERED: PATIENT'S OWN MEDICATION (NON-FORMULARY) (Linaclotide [Linzess] 290 MCG) PO SCH (10:00)
[2018-05-10] MEDS ORDERED: MAGNESIUM OXIDE 400 MG TABLET (FP) PO ONE (13:00)
[2018-05-10] MEDS ORDERED: NAPH,MB-DB/K PH,MBDB POWDER PACKET PO ONE (13:00)
--- NOTE | 2018-05-10 13:17 | PN ---
Progress Note, Physician Chief Complaint: Ms Jennifer says she is feeling much better. No cp, sob, n/v and eating a cookie on evaluation. Complains of chronic pain. - Current Medication List Current Medications: Active Medications Acetaminophen (Tylenol -) 650 mg PO Q4H PRN PRN Reason: PAIN LEVEL 1-5 Last Admin: 05/10/18 12:22 Dose: 650 mg Albuterol Sulfate (Ventolin 0.083% Nebulizer Soln -) 1 amp NEB RQID PRN PRN Reason: SHORT OF BREATH/WHEEZING Amlodipine Besylate (Norvasc -) 5 mg PO DAILY [facility] Docusate Sodium (Colace -) 300 mg PO HS [facility] Folic Acid (Folic Acid -) 1 mg PO DAILY [facility] Last Admin: 05/10/18 09:31 Dose: 1 mg Sodium Chloride (Normal Saline -) 1,000 mls @ 75 mls/hr IV ASDIR [facility] Last Admin: 05/09/18 19:51 Dose: 75 mls/hr Ipratropium [place] (Atrovent 0.02% Nebulizer -) 1 amp NEB RQID PRN PRN Reason: SHORT OF BREATH/WHEEZING Levothyroxine Sodium (Synthroid -) 75 mcg PO DAILY@0700 [facility] Last Admin: 05/10/18 06:18 Dose: 75 mcg Lorazepam (Ativan -) 1 mg PO BID PRN PRN Reason: ANXIETY Last Admin: 05/10/18 09:32 Dose: 1 mg Multivitamins/Minerals/Vitamin C (Tab-A-Vit -) 1 tab PO DAILY [facility] Last Admin: 05/10/18 09:31 Dose: 1 tab Non-Formulary Medication (Linaclotide [Linzess]) 290 mcg PO DAILY [facility] Non-Formulary Medication (Lubiprostone [Amitiza]) 24 mcg PO BID [facility] Non-Formulary Medication (Thiamine Hcl [Thiamine Hcl]) 500 mg PO DAILY [facility] Ondansetron HCl (Zofran Injection) 4 mg IVPUSH Q6H PRN PRN Reason: NAUSEA Pregabalin (Lyrica -) 150 mg PO BID [facility] Last Admin: 05/10/18 09:31 Dose: 150 mg Senna (Senna -) 2 tab PO HS PRN PRN Reason: CONSTIPATION - Objective Vital Signs: Vital Signs Temperature 36.8 C 05/10/18 09:00 Pulse Rate 109 H 0628/18 09:00 Respiratory Rate 18 05/10/18 09:00 Blood Pressure 163/92 05/10/18 09:00 O2 Sat by Pulse Oximetry (%) 97 05/10/18 00:24 Constitutional: Yes: No Distress, Calm, Thin Cardiovascular: Yes: Regular Rate and Rhythm. No: Gallop, Murmur, Rub Respiratory: Yes: Regular, CTA Bilaterally. No: Rales, Rhonchi, Wheezes Gastrointestinal: Yes: Normal Bowel Sounds, Soft. No: Distention, Tenderness Extremities: Yes: WNL Edema: No Labs: CBC, BMP 05/10/18 07:00 05/10/18 07:00 Problem List - Problems (1) Withdrawal from benzodiazepine Code(s): F13.239 - SEDATV/HYP/ANXIOLYTC DEPENDENCE W WITHDRAWAL, UNSP Qualifiers: Complication of substance-induced condition: uncomplicated Qualified Code(s ): F13.230 - Sedative, hypnotic or anxiolytic dependence with withdrawal, uncomplicated (2) ARCENIO (acute kidney injury) Code(s): N17.9 - ACUTE KIDNEY FAILURE, UNSPECIFIED (3) Chronic pain Code(s): G89.29 - OTHER CHRONIC PAIN Qualifiers: Chronic pain type: chronic pain syndrome Qualified Code(s): G89.4 - Chronic pain syndrome (5) Nausea & vomiting Code(s): R11.2 - NAUSEA WITH VOMITING, UNSPECIFIED (6) Shortness of breath Code(s): R06.02 - SHORTNESS OF BREATH (7) Hypothyroid Code(s): E03.9 - HYPOTHYROIDISM, UNSPECIFIED (8) Constipation due to pain medication therapy Code(s): K59.03 - DRUG INDUCED CONSTIPATION (9) Severe protein-calorie malnutrition Code(s): E43 - UNSPECIFIED SEVERE PROTEIN-CALORIE MALNUTRITION (10) Hypomagnesemia Code(s): E83.42 - HYPOMAGNESEMIA (11) Hypophosphatemia Code(s): E83.39 - OTHER DISORDERS OF PHOSPHORUS METABOLISM Assessment/Plan (1) Withdrawal from benzodiazepine Assessment/Plan: -awaiting psychiatry evaluation -will continue bid ativan currently but not xanax -once evaluated by psych, possible discharge home -will send out on very short course of ativan and lyrica but patient needs to f/ u as outpt for this Code(s): F13.239 - SEDATV/HYP/ANXIOLYTC DEPENDENCE W WITHDRAWAL, UNSP Qualifiers: Complication of substance-induced condition: uncomplicated Qualified Code(s ): F13.230 - Sedative, hypnotic or anxiolytic dependence with withdrawal, uncomplicated (2) ARCENIO (acute kidney injury) Assessment/Plan: -improved with IVF -taking po now -stop IVF Code(s): N17.9 - ACUTE KIDNEY FAILURE, UNSPECIFIED (3) Chronic pain Assessment/Plan: -appreciate pain management -continue lyrica at current dose Code(s): G89.29 - OTHER CHRONIC PAIN Qualifiers: Chronic pain type: chronic pain syndrome Qualified Code(s): G89.4 - Chronic pain syndrome (4) Laryngeal cancer Assessment/Plan: -s/p laryngectomy (5) Nausea & vomiting Assessment/Plan: -resolved Code(s): R11.2 - NAUSEA WITH VOMITING, UNSPECIFIED (6) Shortness of breath Assessment/Plan: -resolved -change bronchodilators to prn Code(s): R06.02 - SHORTNESS OF BREATH (7) Hypothyroid Assessment/Plan: -continue synthroid Code(s): E03.9 - HYPOTHYROIDISM, UNSPECIFIED (8) Constipation due to pain medication therapy Assessment/Plan: -continue outpatient regimen -expect to improve with hydration Code(s): K59.03 - DRUG INDUCED CONSTIPATION (9) FEN -replace Mg and PO4 -encourage po intake Dispo -plan for discharge pending psych eval
[2018-05-10] MEDS: amLODIPine BESYLATE 5 MG TABLET (FP) PO SCH (13:50)
--- NOTE | 2018-05-10 16:21 | EKG ---
Test Reason : Blood Pressure : / mmHG Vent. Rate : 082 BPM Atrial Rate : 082 BPM P-R Int : 142 ms QRS Dur : 096 ms QT Int : 396 ms P-R-T Axes : 081 048 076 degrees QTc Int : 462 ms NORMAL SINUS RHYTHM POSSIBLE LEFT ATRIAL ENLARGEMENT POSSIBLE ANTERIOR INFARCT (CITED ON OR BEFORE 23-JUN-2014) ABNORMAL ECG WHEN COMPARED WITH ECG OF 07-MAY-2018 16:35, NO SIGNIFICANT CHANGE WAS FOUND Confirmed by JORGE BAKER MD ([id number]) on 05/10/2018 4:20:37 PM Referred By: Confirmed By:JORGE BAKER MD
--- NOTE | 2018-05-10 18:50 | CON.PSY ---
Psychiatry Consult Chief Complaint: Patient with a history of Multiple Surgeries, anxiety and depression. Seen for Psych eval.History of Cancer. Symptoms: reports: Anxiety, Panic Attacks - Previous Psychiatric Treatment Outpatient: Less than 6 mos ago Inpatient: None - Previous Substance Abuse Treatment Outpatient: None Inpatient: None - Reason for Previous Treatment Reason for Previous Treatment: Major Depression, Anxiety or Panic Disorder - Current Medications Current Medications: Active Medications Acetaminophen (Tylenol -) 650 mg PO Q4H PRN PRN Reason: PAIN LEVEL 1-5 Last Admin: 05/10/18 16:18 Dose: 650 mg Albuterol Sulfate (Ventolin 0.083% Nebulizer Soln -) 1 amp NEB RQID PRN PRN Reason: SHORT OF BREATH/WHEEZING Amlodipine Besylate (Norvasc -) 5 mg PO DAILY [facility] Last Admin: 05/10/18 13:50 Dose: 5 mg Clonazepam (Klonopin -) 1 mg PO TID ONE Stop: 05/10/18 18:47 Docusate Sodium (Colace -) 300 mg PO HS [facility] Folic Acid (Folic Acid -) 1 mg PO DAILY [facility] Last Admin: 05/10/18 09:31 Dose: 1 mg Ipratropium [place] (Atrovent 0.02% Nebulizer -) 1 amp NEB RQID PRN PRN Reason: SHORT OF BREATH/WHEEZING Levothyroxine Sodium (Synthroid -) 75 mcg PO DAILY@0700 [facility] Last Admin: 05/10/18 06:18 Dose: 75 mcg Multivitamins/Minerals/Vitamin C (Tab-A-Vit -) 1 tab PO DAILY [facility] Last Admin: 05/10/18 09:31 Dose: 1 tab Non-Formulary Medication (Linaclotide [Linzess]) 290 mcg PO DAILY [facility] Non-Formulary Medication (Lubiprostone [Amitiza]) 24 mcg PO BID [facility] Non-Formulary Medication (Thiamine Hcl [Thiamine Hcl]) 500 mg PO DAILY [facility] Ondansetron HCl (Zofran Injection) 4 mg IVPUSH Q6H PRN PRN Reason: NAUSEA Pregabalin (Lyrica -) 150 mg PO BID [facility] Last Admin: 05/10/18 09:31 Dose: 150 mg Senna (Senna -) 2 tab PO HS PRN PRN Reason: CONSTIPATION - Allergies Allergies: Allergies Allergy/AdvReac Type Severity Reaction Status Date / Time Penicillins Allergy Hives Verified 06/27/18 15:26 - Current Living Status Usual Living Arrangement: With Significant Other - Current Mental Status Evaluation Appearance: Well Groomed Attitude: Cooperative - Affect Affect: Labile Appropriateness: Appropriate to Content - Mood Mood: Anxious - Speech/Language Expressive: Coherent - Psychomotor Activity Psychomotor Activity: Hyperactive - Thought Process Thought Process: Intact - Thought Content Hallucinations: Absent Delusions: Absent - Self Perception Self Perception: No Impairment - Cognition Attention: Alert Orientation: Time Memory, Immediate Recall: Intact Memory, Short Term: 3/3 Memory, Remote with Promptin/3 - Concentration Serial Sevens Intact: Yes Simple Calculations Intact: Yes - Abstraction Proverb Interpretation: Intact Judgement: Minimally Impaired - Insight Insight: Intact - Impulse Control Impulse Control: Good Control - Suicidal Ideation Suicidal Ideation: No - Homicidal Ideation Homicidal Ideation: No Assessment/Plan treat Anxiety with [id number] 1mg po tid. Patient with a history of multiplec cancers and medical conditions.
[2018-05-10] MEDS: clonazePAM 0.5 MG TABLET PO SCH (20:24)
[2018-05-10] MEDS: ALBUTEROL SO4 0.083% IH SOL 2.5 MG/3 ML VIAL.NEB. NEB PRN (21:25)
[2018-05-10] MEDS: IPRATROPIUM BR 0.02% 0.5 MG/2.5 ML VIAL.NEB. NEB PRN (21:25)
[2018-05-10] MEDS ORDERED: MAG HYDROX/AL HYDROX/SIMETH 30 ML UNIT-DOSE CUP PO ONE (21:34)
[2018-05-10] MEDS ORDERED: DOCUSATE SODIUM 100 MG CAPSULE (FP) PO SCH (22:00)
[2018-05-10] MEDS ORDERED: traZODone HCL 50 MG TABLET (FP) PO SCH (22:45)
[2018-05-11] MEDS: clonazePAM 0.5 MG TABLET PO SCH ×2 (06:19→13:05)
[2018-05-11] MEDS: LEVOTHYROXINE NA 75 MCG TABLET (FP) PO SCH (06:19)
[2018-05-11] MEDS: ACETAMINOPHEN 325 MG TABLET (FP) PO PRN ×2 (06:20→10:52)
[2018-05-11] MEDS: MULTIVITAMINS (DAILY MVI) TABLET (FP) PO SCH (09:23)
[2018-05-11] MEDS: amLODIPine BESYLATE 5 MG TABLET (FP) PO SCH (09:23)
[2018-05-11] MEDS: PREGABALIN 75 MG CAPSULE PO SCH (09:23)
[2018-05-11] MEDS: FOLIC ACID 1 MG TABLET (FP) PO SCH (09:23)
[2018-05-11 09:24] VITALS: BP 148/99; PULSE 102; TEMP 98.3
[2018-05-11] MEDS: IPRATROPIUM BR 0.02% 0.5 MG/2.5 ML VIAL.NEB. NEB PRN (10:05)
[2018-05-11] MEDS: ALBUTEROL SO4 0.083% IH SOL 2.5 MG/3 ML VIAL.NEB. NEB PRN (10:05)
[2018-05-11 11:08] VITALS: BMI 16.1
--- NOTE | 2018-05-11 11:51 | DS ---
Physical Examination Vital Signs: Vital Signs Temperature 36.8 C 05/11/18 09:24 Pulse Rate 102 H 05/11/18 09:24 Respiratory Rate 20 05/11/18 09:24 Blood Pressure 148/99 05/11/18 09:24 O2 Sat by Pulse Oximetry (%) 98 05/11/18 01:00 Labs: CBC, BMP 05/10/18 07:00 05/10/18 07:00 Discharge Summary Reason For Visit: CHRONIC OBSTRUCTIVE PULMONARY DISEASE Current Active Problems COPD (chronic obstructive pulmonary disease) (Acute) Constipation due to pain medication therapy (Acute) Hypomagnesemia (Acute) Hypophosphatemia (Acute) Hypothyroid (Acute) Severe protein-calorie malnutrition (Acute) Withdrawal from benzodiazepine (Acute) Condition: Stable - Instructions Diet, Activity, Other Instructions: resume previous diet and activity Referrals: Bruce Akers MD [Primary Care Provider] - Jose A Yepez MD [Staff Physician] - Elle Menard MD [Staff Physician] - Disposition: HOME - Home Medications Comprehensive Discharge Medication List: Ambulatory Orders Folic Acid 1 mg PO DAILY 05/09/18 Levothyroxine Sodium [Levoxyl] 75 mcg PO DAILY 05/09/18 Linaclotide [Linzess] 290 mcg PO DAILY 05/09/18 Lubiprostone [Amitiza] 24 mcg PO BID 05/09/18 Multivitamin with Iron [Daily Socrates with Iron] 1 each PO DAILY 05/09/18 Amlodipine Besylate [Norvasc -] 5 mg PO DAILY #30 tablet 05/11/18 Clonazepam [Klonopin] 1 mg PO TID #90 tablet MDD 3mg 05/11/18 Pregabalin [Lyrica -] 150 mg PO BID #60 cap MDD 300mg 05/11/18 Thiamine HCl 500 mg PO DAILY #30 tablet 05/11/18
== END 2018-05-11 13:45 | disposition home or self-care (01) ==
LOC: JER 13:05 → JERBED 16:20 → J5S 21:27
PROVIDERS: ADMIT Internal Medicine; ATTEND Internal Medicine
PROC: 3E033NZ Introduction of Analgesics, Hypnotics, Sedatives into Peripheral Vein, Percutaneous Approach (ICD-10-PCS; principal; 2018-05-09)
PROC: 3E033GC Introduction of Other Therapeutic Substance into Peripheral Vein, Percutaneous Approach (ICD-10-PCS; 2018-05-09)
PROC: 3E0337Z Introduction of Electrolytic and Water Balance Substance into Peripheral Vein, Percutaneous Approach (ICD-10-PCS; 2018-05-09)
PROC: 3E0F7GC Introduction of Other Therapeutic Substance into Respiratory Tract, Via Natural or Artificial Opening (ICD-10-PCS; 2018-05-09)
DX: J44.9 Chronic obstructive pulmonary disease, unspecified (principal); K59.03 Drug induced constipation; E83.42 Hypomagnesemia; E83.39 Other disorders of phosphorus metabolism; E03.9 Hypothyroidism, unspecified; F13.239 Sedative, hypnotic or anxiolytic dependence with withdrawal, unspecified; N17.9 Acute kidney failure, unspecified; Z85.21 Personal history of malignant neoplasm of larynx; Z90.02 Acquired absence of larynx; Z88.0 Allergy status to penicillin; R11.2 Nausea with vomiting, unspecified; R06.02 Shortness of breath; E43 Unspecified severe protein-calorie malnutrition; G89.4 Chronic pain syndrome
CPT/HCPCS: 36415; 36600; 71045-TC-FY; 80048; 80053; 81003; 81015; 82375; 82550; 82803; 83050; 83690; 83735; 84100; 84484; 85025; 87040; 93005; 93010; 94640; 99284-25; G0378; J7030; J7620

== ENCOUNTER 2018-07-16 10:05 | Emergency (ER) | payer OTHER ==
[2018-07-16 10:17] VITALS: BP 125/74; TEMP 98.3; BMI 15.0
--- NOTE | 2018-07-16 10:49 | PDOC ---
History of Present Illness - General Chief Complaint: Shortness of Breath Stated Complaint: DIFFICULTY BREATHING/ trach Time Seen by Provider: 07/16/18 10:49 History Source: Patient Exam Limitations: No Limitations - History of Present Illness Initial Comments: 07/16/18 11:17 57 year old female with PMH laryngeal cancer, trach, anxiety/depression presenting to ED for SOB x3 days. She also c/o nausea, vomiting, vomit streaked with blood, body aches, lower abdominal pain. She denies chest pain, cough, headache, weakness, numbness, tingling. Pt states a new trach prosthesis was placed x3 weeks ago by Dr. Valadez. PCP - Dr. Akers Allergies - PCN, Lactose Past History - Past Medical History Allergies/Adverse Reactions: Allergies Allergy/AdvReac Type Severity Reaction Status Date / Time lactose Allergy Verified 07/16/18 10:07 Penicillins Allergy Hives Verified 07/16/18 10:07 Home Medications: Ambulatory Orders Folic Acid 1 mg PO DAILY 05/09/18 Levothyroxine Sodium [Levoxyl] 75 mcg PO DAILY 05/09/18 Linaclotide [Linzess] 290 mcg PO DAILY 05/09/18 Lubiprostone [Amitiza] 24 mcg PO BID 05/09/18 Thiamine HCl 500 mg PO DAILY #30 tablet 05/11/18 Sulfamethoxazole/Trimethoprim [Bactrim Ds -] 1 tab PO BID #6 tablet 07/16/18 Anemia: No Asthma: No 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) Cardiac Disorders: No CVA: No COPD: No CHF: No DVT: No Dementia: No Diabetes: No GI Disorders: Yes (enlarged colon, constipation; gastroesophageal refllux disease) Disorders: No HTN: No Hypercholesterolemia: No Liver Disease: No Seizures: No Thyroid Disease: No - Family Disease History Family Disease History: Diabetes: Mother, CA: Father (Prostate) - Immunization History Immunization Up to Date: Yes - Suicide/Smoking/Psychosocial Hx Smoking History: Unknown if ever smoked Have you smoked in the past 12 months: No Number of Cigarettes Smoked Daily: 3 Information on smoking cessation initiated: No 'Breaking Loose' booklet given: 01/25/18 Hx Alcohol Use: No Drug/Substance Use Hx: No Substance Use Type: None Hx Substance Use Treatment: No Review of Systems - Review of Systems Able to Perform ROS?: Yes Comments:: 07/16/18 11:20 General: denies fever, chills, night sweats, generalized weakness. HEENT: denies sore throat, rhinorrhea, ear pain. Heart: denies chest pain, palpitations, syncope, lower extremity swelling, diaphoresis. Respiratory: denies shortness of breath, cough, sputum production, hematemesis. Abdomen: admits to abdominal pain, nausea, vomiting, diarrhea, blood streaked vomit. denies constipation, blood in stool. : admits to intermittent dysuria. denies increased urinary frequency, hematuria, urinary incontinence, flank pain. Back: denies back pain, flank pain. Musculoskeletal: admits to generalized body aches. denies joint pain, joint swelling. Neurological: denies headache, dizziness, numbness, tingling, weakness. Skin: denies rash, laceration, abrasion. *Physical Exam - Vital Signs Last Vital Signs Temp Pulse Resp BP Pulse Ox 98.3 F 80 18 125/74 100 07/16/18 10:08 07/16/18 10:08 07/16/18 10:08 07/16/18 10:08 07/16/18 10:08 - Physical Exam Comments: 07/16/18 11:20 Appearance: comfortable. drinking coffee. HEENT: head is normocephalic, atraumatic. EOMI. PERRLA. Neck: supple. Full ROM. Trach midline, no surrounding erythema, patent. Heart: regular rhythm. no murmurs, rubs or gallops. No pericardial friction rub. Lungs: clear to auscultation bilaterally. no crackles, rhonchi or wheezing. no stridor. Abdomen: soft. tenderness to palpation of suprapubic area. normal bowel sounds. no rebound, guarding, masses. CVA tenderness negative bilaterally. Extremities: Peripheral pulses intact and equal. No lower extremity edema. Neurological: Alert. Oriented x3. CN 2-12 grossly intact. Moves all four extremities. Heart Score/ECG Review - ECG Impressions Comment:: 07/16/18 12:02 Rate 70, regular rhythm, normal axis, no acute ST changes. ED Treatment Course - LABORATORY CBC & Chemistry Diagram: 07/16/18 12:00 07/16/18 12:00 Medical Decision Making - Medical Decision Making 07/16/18 11:21 57 year old female with PMH laryngeal cancer, trach presenting for N/V/D/body aches/SOB. Satting 100%. Trach appears normal. Initial Vital Signs Temp Pulse Resp BP Pulse Ox 98.3 F 80 18 125/74 100 07/16/18 10:08 07/16/18 10:08 07/16/18 10:08 07/16/18 10:08 07/16/18 10:08 Pending labs, UA, UC. Zofran ordered. 07/16/18 13:03 CBC normal. CMP unchanged from prior. CXR unchanged from prior, no acute disease. Pending UA. Pt reassessed. Eating food. States she is feeling better. 07/16/18 13:28 UA - reveals UTI Bactrim prescription ordered and sent to pharmacy. Pt will be discharged with bactrim prescription, follow up instructions and strict return precautions. *DC/Admit/Observation/Transfer Diagnosis at time of Disposition: Nausea & vomiting, Shortness of breath, Urinary tract infection - Discharge Dispostion Disposition: HOME Condition at time of disposition: Stable Decision to Admit order: No - Prescriptions Prescriptions: Sulfamethoxazole/Trimethoprim [Bactrim Ds -] 1 tab PO BID #6 tablet - Referrals Referrals: Bruce Akers MD [Primary Care Provider] - - Patient Instructions Additional Instructions: You were seen today for shortness of breath, nausea and vomiting. Your lab work revealed no changes from prior. Your chest x-ray revealed no changes from prior. Your urine analysis revealed a urinary tract infection. I have sent a prescription for an antibiotic to your pharmacy. Take all pills as instructed. Do not miss any doses. Take a probiotic over the counter to try to avoid antibiotic associated yeast infection or diarrhea. Take Mucinex over the counter to help clear the mucus from your airway. Follow up with your primary care doctor within 7 days. Call their office tomorrow morning and make an appointment for this week. Bring the paperwork given to you today with you to your appointment. Return to the Emergency Department for increased sputum, chest pain, shortness of breath, intractible vomiting, abdominal pain, fever, chills, lightheadedness , passing out, or any other new, worsening or concerning symptoms. Your care is not complete until you follow up. - Post Discharge Activity Forms/Work/School Notes: Back to Work
--- NOTE | 2018-07-16 11:12 | PDOC ---
Attending Attestation - Resident Resident Name: Bethanie Alcantara - ED Attending Attestation I have performed the following: I have examined & evaluated the patient, The case was reviewed & discussed with the resident, I agree w/resident's findings & plan, Exceptions are as noted - Physicial Exam PE: 07/16/18 12:58 GENERAL: The patient is awake, alert, and fully oriented, in mild distress. HEAD: Normocephalic, atraumatic. EYES: extraocular movements intact, sclera anicteric, conjunctiva clear. ENT: Moist mucous membranes. NECK: Normal range of motion, supple, trach device in place with mild whitish secretions, no erythema/induration/ttp. LUNGS: Breath sounds equal, clear to auscultation bilaterally. No wheezes, no rhonchi, no rales. HEART: Regular rate and rhythm, without murmur, rub or gallop. ABDOMEN: Soft, suprapubic tenderess to palpation. No guarding, no rebound.No CVA tenderness EXTREMITIES: Normal range of motion, no edema. NEUROLOGICAL: No facial assymetry, Normal speech, moving all 4 extreities spontaneously and symmetrically PSYCH: Normal mood, normal affect. SKIN: Warm, Dry, normal turgor. - Medical Decision Making 07/16/18 12:54 suspect pts respiratory symtoms may be due to increased mucus production will ck xray to r/o pna will give neb saline to loosen up her congestion will ck labs to r/o anemia, metabolic dernagement from her diarrhea abd sof tnontender - do not suspect acute appy or other surgical emergency <Fidel Monet - Last Filed: 07/16/18 12:58> - HPI HPI: The patient is a 57 year old female with a PMHx of laryngeal cancer s/p laryngectomy and tracheoesophageal voice prosthesis who presents with 3 days of nausea, vomiting, diarrhea. Patient reports that 3 weeks ago, she had surgery for a new trach protheisis. She states that 3 days ago she began experiencing nausea, vomiting (1 episode of vomiting in the setting of coughing this morning) , mild suprapubic pain and dysuria. Pt also endorses increased discharge from her trach and occasional coughing. She denies any fever, chills, cp, pryor, leg swelling, or hemoptysis PCP: Bruce Akers <Nereyda Long - Last Filed: 07/16/18 13:04> Heart Score/ECG Review - ECG Impressions Comment:: 07/16/18 12:55 Twelve-lead EKG was performed and reviewed by me. There is normal sinus rhythm with a normal rate. Rate of 70 qt interval of 503 abnormal r wave progression <Fidel Monet - Last Filed: 07/16/18 12:58>
[2018-07-16] MEDS ORDERED: ONDANSETRON 4 MG/2 ML VIAL IVPUSH ONE (11:16)
[2018-07-16] MEDS ORDERED: SODIUM CHLORIDE 1,000 ML IV STA (11:17)
[2018-07-16] MEDS ORDERED: ONDANSETRON 4 MG/2 ML VIAL ONE (11:30)
[2018-07-16 11:35] VITALS: PULSE 82
[2018-07-16 12:07] LABS: BASO % 0.6 % (0-2.0); EOS % 1.5 % (0-4.5); HEMATOCRIT 39.9 % (32.4-45.2); HEMOGLOBIN 13.5 GM/dL (10.7-15.3); LYMPH % 18.1 % (8-40); MCH 29.2 pg (25.7-33.7); MCHC 33.8 g/dl (32.0-36.0); MEAN CELL VOLUME 86.3 fl (80-96); MEAN PLT VOLUME 7.8 fl (7.5-11.1); MONO % 5.6 % (3.8-10.2); NEUT % 74.2 % (42.8-82.8); PLATELET COUNT 356 K/MM3 (134-434); RBC 4.62 M/mm3 (3.60-5.2); RDW 13.3 % (11.6-15.6); WHITE BLOOD COUNT 8.5 K/mm3 (4.0-10.0)
[2018-07-16] MEDS ORDERED: SODIUM CHLORIDE FOR INHALATION 3 ML VIAL.NEB IH ONE (12:36)
[2018-07-16 12:46] LABS: ALBUMIN 3.6 g/dl (3.4-5.0); ANION GAP 11 MMOL/L (8-16); BILIRUBIN,TOTAL 0.4 mg/dL (0.2-1.0); BLOOD UREA NITROGEN 33 mg/dL (7-18); CALCIUM 9.2 mg/dL (8.5-10.1); CHLORIDE 101 mmol/L (98-107); CO2 25 mmol/L (21-32); CREATININE 1.3 mg/dL (0.55-1.02); GLUCOSE,RANDOM 102 mg/dL (74-106); LIPASE 130 U/L (73-393); SGPT/ALT 16 U/L (12-78); SODIUM 137 mmol/L (136-145); TOT PROT 7.9 g/dl (6.4-8.2)
[2018-07-16 12:47] LABS: ALK PHOS 131 U/L (45-117); POTASSIUM 4.6 mmol/L (3.5-5.1); SGOT/AST 30 U/L (15-37)
[2018-07-16 13:23] LABS: URINE APPEARANCE CLEAR; URINE BILIRUBIN NEGATIVE (<2.0 mg/dL); URINE COLOR YELLOW; URINE GLUCOSE (UA) NEGATIVE (NEGATIVE); URINE KETONE NEGATIVE (NEGATIVE); URINE NITRITE NEGATIVE (NEGATIVE); URINE PROTEIN NEGATIVE (NEGATIVE); URINE UROBILINOGEN NEGATIVE mg/dL (0.2-1.0)
[2018-07-16 13:26] LABS: URINE LEUK ESTERASE 2+ (NEGATIVE)
[2018-07-16 13:31] LABS: EPI CELLS RARE /HPF (FEW); URINE MUCUS RARE
--- NOTE | 2018-07-17 16:31 | EKG ---
Test Reason : Blood Pressure : / mmHG Vent. Rate : 070 BPM Atrial Rate : 070 BPM P-R Int : 142 ms QRS Dur : 088 ms QT Int : 466 ms P-R-T Axes : 079 041 070 degrees QTc Int : 503 ms NORMAL SINUS RHYTHM POSSIBLE LEFT ATRIAL ENLARGEMENT ANTERIOR INFARCT (CITED ON OR BEFORE 23-JUN-2014) PROLONGED QT ABNORMAL ECG WHEN COMPARED WITH ECG OF 09-MAY-2018 14:23, NO SIGNIFICANT CHANGE WAS FOUND Confirmed by Darell Casper ([id number]) on 07/17/2018 4:31:06 PM Referred By: Confirmed By:Darell Casper
== END 2018-07-16 13:46 | disposition home or self-care (01) ==
LOC: JER 10:05
PROC: 3E0337Z Introduction of Electrolytic and Water Balance Substance into Peripheral Vein, Percutaneous Approach (ICD-10-PCS; principal; 2018-07-16)
PROC: 3E033GC Introduction of Other Therapeutic Substance into Peripheral Vein, Percutaneous Approach (ICD-10-PCS; 2018-07-16)
DX: N39.0 Urinary tract infection, site not specified (principal); Z85.21 Personal history of malignant neoplasm of larynx; Z93.0 Tracheostomy status
CPT/HCPCS: 36415; 71045-TC-FY; 80053; 81003; 81015; 83690; 85025; 87086; 93005; 93010; 99284-25; J7030

== ENCOUNTER 2018-09-01 11:36 | Emergency (ER) | payer OTHER ==
[2018-09-01 11:52] VITALS: TEMP 98.6; BMI 15.9
[2018-09-01] MEDS ORDERED: LORazepam 1 MG TABLET PO ONE ×2 (12:08→15:23)
[2018-09-01] MEDS ORDERED: LORazepam 0.5 MG TABLET ONE ×2 (12:14→15:31)
--- NOTE | 2018-09-01 12:16 | PDOC ---
History of Present Illness <Nato Mayes - Last Filed: 09/01/18 17:34> - History of Present Illness Initial Comments: 09/01/18 12:10 57 yo F with h/o laryngeal cancer, trach, anxiety/depression who p/w closed head injury s/p fall. Patient non verbal with trach. Communicates with gestures and mouthing words. Patient unable to write on paper with pen. Patient states that she was ambulating in kitchen when slipped and hit her nasal bridge on a chair. Denies LOC, or neck/back injury. Patient able to ambulate following event. Time of event unknown. Denies anticoagulation. Patient denies cough, N/V,cough, wheezing, F/C, CP, SOB, urinary complaints, abdominal pain, diarrhea, constipation, lightheadedness, weakness, sensory changes. 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) Cardiac Disorders: No CVA: No COPD: No CHF: No DVT: No Dementia: No Diabetes: No GI Disorders: Yes (enlarged colon, constipation; gastroesophageal refllux disease) Disorders: No HTN: No Hypercholesterolemia: No Liver Disease: No Seizures: No Thyroid Disease: No - Family Disease History Family Disease History: Diabetes: Mother, [place]: Father (Prostate) - Immunization History Immunization Up to Date: Yes - Suicide/Smoking/Psychosocial Hx Smoking History: Former smoker Have you smoked in the past 12 months: No Number of Cigarettes Smoked Daily: 3 Information on smoking cessation initiated: No 'Breaking Loose' booklet given: 01/25/18 Hx Alcohol Use: No Drug/Substance Use Hx: No Substance Use Type: None Hx Substance Use Treatment: No <Danny Sinclair - Last Filed: 09/01/18 18:19> - Past Medical History Allergies/Adverse Reactions: Allergies Allergy/AdvReac Type Severity Reaction Status Date / Time lactose Allergy Verified 09/01/18 12:47 Penicillins Allergy Hives Verified 09/01/18 12:47 Home Medications: Ambulatory Orders RX: Folic Acid 1 mg PO DAILY 05/09/18 RX: Levothyroxine Sodium [Levoxyl] 75 mcg PO DAILY 05/09/18 RX: Linaclotide [Linzess] 290 mcg PO DAILY 05/09/18 RX: Lubiprostone [Amitiza] 24 mcg PO BID 05/09/18 RX: Thiamine HCl 500 mg PO DAILY #30 tablet 05/11/18 Sulfamethoxazole/Trimethoprim [Bactrim Ds -] 1 tab PO BID #6 tablet 07/16/18 Review of Systems - Review of Systems Comments:: 09/01/18 12:16 GENERAL/CONSTITUTIONAL: No fever or chills. No weakness. HEAD, EYES, EARS, NOSE AND THROAT: + Nasal bridge injury. No change in vision. No ear pain or discharge. No sore throat. CARDIOVASCULAR: No chest pain or shortness of breath RESPIRATORY: No cough, wheezing, or hemoptysis. GASTROINTESTINAL: No nausea, vomiting, diarrhea or constipation. GENITOURINARY: No dysuria, frequency, or change in urination. MUSCULOSKELETAL: No joint or muscle swelling or pain. No neck or back pain. SKIN: No rash NEUROLOGIC: No headache, vertigo, loss of consciousness, or change in strength/ sensation. ENDOCRINE: No increased thirst. No abnormal weight change HEMATOLOGIC/LYMPHATIC: No anemia, easy bleeding, or history of blood clots. ALLERGIC/IMMUNOLOGIC: No hives or skin allergy. <Danny Sinclair - Last Filed: 09/01/18 18:19> *Physical Exam - Vital Signs Last Vital Signs Temp Pulse Resp BP Pulse Ox 98.6 F 110 H 24 H 188/107 H 97 09/01/18 11:50 09/01/18 11:50 09/01/18 11:50 09/01/18 11:50 09/01/18 11:50 <Nato Mayes - Last Filed: 09/01/18 17:34> - Vital Signs Last Vital Signs Temp Pulse Resp BP Pulse Ox 98.6 F 110 H 24 H 188/107 H 97 09/01/18 11:50 09/01/18 11:50 09/01/18 11:50 09/01/18 11:50 09/01/18 11:50 - Physical Exam Comments: 09/01/18 12:16 GENERAL: Patient anxious appearing and tremulous. Awake, alert, and fully oriented, in no acute distress HEAD: No signs of trauma, normocephalic, atraumatic EYES: PERRLA, EOMI, sclera anicteric, conjunctiva clear ENT: + 2mm superficial, horizontal linear abrasion overlying superior nasal bridge. Auricles normal inspection, hearing grossly normal, nares patent, oropharynx clear without exudates. Moist mucosa NECK: Normal ROM, supple, no lymphadenopathy, JVD, or masses LUNGS: No distress, speaks full sentences, clear to auscultation bilaterally HEART: Regular rate and rhythm, normal S1 and S2, no murmurs, rubs or gallops, peripheral pulses normal and equal bilaterally. EXTREMITIES : Normal inspection, Normal range of motion, no edema. No clubbing or cyanosis. NEUROLOGICAL: Cranial nerves II through XII grossly intact. Normal speech, normal gait, no focal sensorimotor deficits. SKIN: Warm, Dry, normal turgor, no rashes or lesions noted <Danny Sinclair - Last Filed: 09/01/18 18:19> Procedures - Laceration/Wound Repair Both Anterior Nose Wound Length: to 2.5 cm Wound Explored: clean, no foreign body present Wound's Depth, Shape: superficial Irrigated w/ Saline: Yes Betadine Prep: No Wound Debrided: minimal Wound Repaired With: Dermabond Layer Closure: No Sterile Dressing Applied: No Splint Applied: No Sling Applied: No <Danny Sinclair - Last Filed: 09/01/18 18:19> ED Treatment Course - ADDITIONAL ORDERS Additional order review: Laboratory Results 09/01/18 11:26 Urine Color Ltyellow Urine Appearance Clear Urine pH 5.0 D Ur Specific Spencer 1.018 Urine Protein 1+ H Urine Glucose (UA) Negative Urine Ketones Negative Urine Blood Negative Urine Nitrite Negative Urine Bilirubin Negative Urine Urobilinogen Negative Ur Leukocyte Esterase Negative Urine WBC (Auto) 3 Urine RBC (Auto) <1 Ur Epithelial Cells Rare Urine Mucus Rare - Medications Given in the ED: ED Medications Discontinued Medications Generic Name Dose Route Start Last Admin Trade Name Freq PRN Reason Stop Dose Admin Chlordiazepoxide HCl 50 mg 09/01/18 15:57 09/01/18 16:24 Librium - PO 09/01/18 15:58 50 mg ONCE ONE Administration Diphtheria/Tetanus/Acell Pertussis 0.5 ml 09/01/18 13:12 09/01/18 14:15 Boostrix - IM 09/01/18 13:13 0.5 ml .ONCE ONE Administration Lorazepam 1 mg 09/01/18 12:08 09/01/18 12:19 Ativan - PO 09/01/18 12:09 1 mg ONCE ONE Administration Lorazepam 1 mg 09/01/18 15:02 09/01/18 16:08 Ativan Injection - IVPUSH 09/01/18 15:03 Not Given ONCE ONE Lorazepam 1 mg 09/01/18 15:23 09/01/18 15:34 Ativan - PO 09/01/18 15:24 1 mg ONCE ONE Administration <Nato Mayes - Last Filed: 09/01/18 17:34> Medical Decision Making - Medical Decision Making 09/01/18 12:58 57 yo F with h/o polysubstance abuse, laryngeal cancer, trach, anxiety/ depression who p/w closed head injury s/p fall. BP 188/107, HR 110, RR 24, AF. Denies LOC. Low suspicion of hemorrhage, hematoma, skull fracture. No evidence septal hematoma. C-SPINE Neg per nexus criteria. Ed Course: 09/01/18 13:13 CT FACIAL BONES, CTH BOOSTRIX 09/01/18 13:43 laceration irrigated with high pressure water and dermabond repaired. 09/01/18 15:24 CT C-SPINE, CTH: No acute pathology 09/01/18 16:28 BP 164/68 HR 109 09/01/18 17:31 Librium 50 mg PO BP: 154/89 HR: 97 Patient stable resting comfortably in bed. Does not endorse pain. Stable for d/c with return precautions. Advised to f/u with PMD. <Danny Sinclair - Last Filed: 09/01/18 18:19> *DC/Admit/Observation/Transfer <Nato Mayes - Last Filed: 09/01/18 17:34> - Discharge Dispostion Decision to Admit order: No - Attestations Physician Attestion: 09/01/18 12:17 I attest to the information provided in this note. <Danny Sinlcair - Last Filed: 09/01/18 18:19> Diagnosis at time of Disposition: Closed head injury Qualifiers: Encounter type: initial encounter Qualified Code(s): S09.90XA - Unspecified injury of head, initial encounter - Discharge Dispostion Condition at time of disposition: Stable - Referrals Referrals: Bruce Akers MD [Primary Care Provider] - - Patient Instructions Printed Discharge Instructions: DI for Closed Head Injury, DI for Drug or Alcohol Withdrawal Additional Instructions: Please return to the emergency department with any new or worsening symptoms or concerns. Please follow up with your primary care physician within 72 hours.
[2018-09-01 12:34] LABS: URINE APPEARANCE CLEAR; URINE BILIRUBIN NEGATIVE (<2.0 mg/dL); URINE COLOR LTYELLOW; URINE GLUCOSE (UA) NEGATIVE (NEGATIVE); URINE KETONE NEGATIVE (NEGATIVE); URINE LEUK ESTERASE NEGATIVE (NEGATIVE); URINE NITRITE NEGATIVE (NEGATIVE); URINE PROTEIN 1+ (NEGATIVE); URINE UROBILINOGEN NEGATIVE mg/dL (0.2-1.0)
[2018-09-01 12:50] LABS: EPI CELLS RARE /HPF (FEW); URINE MUCUS RARE
[2018-09-01] MEDS ORDERED: DIPHTH,PERTUSS(ACELL),TET 0.5 ML DISP.SYRIN IM ONE (13:12)
--- NOTE | 2018-09-01 14:30 | PDOC ---
Attending Attestation - Resident Resident Name: YahirDanny - ED Attending Attestation I have performed the following: I have examined & evaluated the patient, The case was reviewed & discussed with the resident, I agree w/resident's findings & plan, Exceptions are as noted - HPI HPI: 09/01/18 14:26 The patient is a 57 year old female with a significant past medical history of polysubstance abuse, anxiety,and largyngeal ca s/p trach who presents to the ED with a facial injury after falling today. the patient reports that she was at home in her kitchen earlier this morning when she tripped, fell and hit her face on a chair. she denies any loc. Denies DENNIS, neck or back pain. Endorses pain in her nose, no other complaints. Denies epistaxis. - Physicial Exam PE: 09/01/18 14:26 GENERAL: Awake, alert, and fully oriented, in no acute distress. HEAD: + 1cm linear laceration to bridge of nose EYES: PERRLA, EOMI, sclera anicteric, conjunctiva clear ENT: Auricles normal inspection, hearing grossly normal, nares patent, oropharynx clear without exudates. Moist mucosa NECK: Nontender, no stepoffs, Normal ROM, supple, no lymphadenopathy, JVD, or masses LUNGS: Breath sounds equal, clear to auscultation bilaterally. No wheezes, and no crackles HEART: Regular rate and rhythm, normal S1 and S2, no murmurs, rubs or gallops ABDOMEN: Soft, nontender, normoactive bowel sounds. No guarding, no rebound. No masses EXTREMITIES: Normal range of motion, no edema. No clubbing or cyanosis. No cords, erythema, or tenderness NEUROLOGICAL: Cranial nerves II through XII intact. 5/5 strength and sensation in all extremities, Normal speech, normal gait, normal cerebellar function SKIN: Warm, Dry, normal turgor, no rashes or lesions noted. - Medical Decision Making 09/01/18 14:29 57 F with facial injury after trip and fall. No evidence of septal hematoma. Will evaluate for facial bone fx with CT. Pt noted to by tachycardic and hypertensive in ED, pacing around the department. Pt reports taking ativan 3 times daily and states she didn't have any today. Pt is well appearing but anxious. Suspect mild benzo withdrawal. - CT head/facial bones - Ativan 1mg PO - Lac repair - Tdap 09/01/18 17:33 CTs negative lac repaired Tdap administered Pt reassessed s/p ativan and librium, now with normal vitals, less anxious appearing, sleeping comfortably in stretcher. Pt is well appearing, with normal vitals. Clinically stable for DC at this time. BP 150/90, HR 90s I discussed the physical exam findings, ancillary test results and final diagnoses with the patient. I answered all of the patient's questions. The patient was satisfied with the care received and felt comfortable with the discharge plan and treatment plan. The patient agrees to follow up with the primary care physician within 24-72 hours.
[2018-09-01] MEDS ORDERED: chlordiazePOXIDE HCL 25 MG CAPSULE PO ONE (15:57)
[2018-09-01] MEDS ORDERED: chlordiazePOXIDE HCL 25 MG CAPSULE ONE (16:21)
[2018-09-01 17:47] VITALS: BP 154/89; PULSE 98
== END 2018-09-01 19:14 | disposition home or self-care (01) ==
LOC: JER 11:36 → SUPCPDRO 11:36 → JER 19:14
PROC: 09QKXZZ Repair Nasal Mucosa and Soft Tissue, External Approach (ICD-10-PCS; principal; 2018-09-01)
PROC: 3E0234Z Introduction of Serum, Toxoid and Vaccine into Muscle, Percutaneous Approach (ICD-10-PCS; 2018-09-01)
DX: S01.21XA Laceration without foreign body of nose, initial encounter (principal); W01.190A Fall on same level from slipping, tripping and stumbling with subsequent striking against furniture, initial encounter; Y93.89 Activity, other specified; Y92.010 Kitchen of single-family (private) house as the place of occurrence of the external cause; Y99.8 Other external cause status; F41.8 Other specified anxiety disorders; F32.9 Major depressive disorder, single episode, unspecified; Z93.0 Tracheostomy status; Z85.21 Personal history of malignant neoplasm of larynx; Z87.19 Personal history of other diseases of the digestive system
CPT/HCPCS: 70450-TC; 70486-TC; 81003; 81015; 90715; 99281-25